=== PATIENT | female | born 1930 | race Caucasian/White ===

== ENCOUNTER → 2016-10-16 | Outpatient (CLI) | payer OTHER ==
[~2016-10-16] MED LIST: AMLODIPINE PO; B COCAP10 PO; CALC600T9 PO; CULTURELLE PO; EVS60 PO; FISHOIL PO; FLAXSEED OIL PO; IRON PO; LEVOTHYROXINE PO; NIACIN PO; OMEG1CAP71 PO; PANT40TA PO; TUMERIC PO; ZYRTEC PO
[2016-10-16 12:26] LABS: BASO % 0.3 %; BASO ABS # 0.02 K/uL (0-0.2); COMPLETE YES; EOS % 4.6 %; HEMATOCRIT 44.6 % (37-47); IG% 0.1 %; LYMPH % 18.7 %; LYMPH ABS # 1.34 K/uL (1.2-3.4); MEAN CELL VOLUME 99.8 fL (80-100); MEAN CORPUSCULAR HEMOGLOBIN 32.2 pg (25-34); MEAN CORPUSCULAR HGB CONC 32.3 g/dl (32-36); MEAN PLATELET VOLUME 10.5 fL (7.4-10.4); MONO % 9.7 %; NEUT % 66.6 %; PLATELET COUNT 200 K/uL (130-400); RED BLOOD COUNT 4.47 M/uL (4.2-5.4); WHITE BLOOD COUNT 7.15 K/uL (4.8-10.8)
[2016-10-16 13:49] LABS: ALB/GLOB RATIO 1.2 (0.9-2); ALKALINE PHOSPHATASE 68 U/L (45-117); ALT/SGPT 33 U/L (12-78); AST/SGOT 28 U/L (15-37); BLOOD UREA NITROGEN 21 mg/dl (7-18); BUN/CREATININE RATIO 22.1 (10-20); CALCIUM 8.5 mg/dl (8.5-10.1); CARBON DIOXIDE 26 mmol/L (21-32); CHLORIDE 112 mmol/L (98-107); CHOLESTEROL 206 mg/dl (0-200); CREATININE 0.93 mg/dl (0.60-1.20); GLUCOSE 95 mg/dl (70-99); HDL CHOLESTEROL 103 mg/dl; LDL CHOLESTEROL CALCULATED 91 mg/dl; POTASSIUM 3.8 mmol/L (3.5-5.1); SODIUM 146 mmol/L (136-145); TRIGLYCERIDES 62 mg/dl (0-150); VERY LOW DENSITY LIPOPROT CALC 12 mg/dl
== END | disposition home or self-care (01) ==
LOC: C.LABPBG 08:22
PROVIDERS: ATTEND Internal Medicine
DX: M85.80 Other specified disorders of bone density and structure, unspecified site (principal); D75.89 Other specified diseases of blood and blood-forming organs

== ENCOUNTER → 2017-01-28 | Outpatient (CLI) | payer OTHER ==
--- NOTE | 2017-01-28 15:18 | MAMMOGRAPHY REPORT ---
BILATERAL DIGITAL SCREENING MAMMOGRAM WITH CAD: 01/28/2017 CLINICAL HISTORY: Routine screening. TECHNIQUE: Current study was also evaluated with a Computer Aided Detection (CAD) system. Bilateral CC and MLO views were obtained. COMPARISON: Comparison is made to exams dated: 01/28/2016 mammogram, 01/24/2015 mammogram, 01/23/2014 m ammogram, 01/26/2013 mammogram, 01/21/2013 mammogram, and 01/08/2012 mammogram - [facility] enter. BREAST COMPOSITION: There are scattered areas of fibroglandular density in both breasts. FINDINGS: No suspicious masses, calcifications, or areas of architectural distortion are noted in ei ther breast. There has been no significant interval change compared to prior exams. IMPRESSION: ACR BI-RADS CATEGORY 1: NEGATIVE There is no mammographic evidence of malignancy. A 1 year screening mammogram is recommended. The pa tient will receive written notification of the results. Approximately 10% of breast cancers are not detected with mammography. A negative mammographic report should not delay biopsy if a clinically suggestive mass is present. Luciana Peters M.D. ah/:01/28/2017 09:48:51 Director Presales: Dustin Marie RT(R)(M), [facility] letter sent: Normal 1/2 BI-RADS Code: ACR BI-RADS Category 1: Negative
== END | disposition home or self-care (01) ==
LOC: C.MAMM 08:38
PROVIDERS: ATTEND Obstetrics & Gynecology
DX: Z12.31 Encounter for screening mammogram for malignant neoplasm of breast (principal)

== ENCOUNTER → 2017-03-19 | Outpatient (CLI) | payer OTHER ==
[2017-03-19 12:58] LABS: INR 1.2 (0.9-1.1); PROTHROMBIN TIME (PATIENT) 13.1 SECONDS (9.0-12.0)
== END | disposition home or self-care (01) ==
LOC: C.LABPBG 09:30
PROVIDERS: ATTEND Internal Medicine
DX: I48.91 Unspecified atrial fibrillation (principal); I48.92 Unspecified atrial flutter

== ENCOUNTER 2019-07-15 06:16 | Inpatient (IN) ==
--- NOTE | 2019-06-10 13:24 | PAT Medication Instructions ---
Medication Instructions Date of Service June 10, 2019 Home Medications Medication Instructions Recorded metoprolol succinate 25 mg 25 mg PO BID #180 tab 12/06/18 tablet,extended release 24 hr metoprolol succinate 25 mg tablet,extended release 24 hr 25 mg PO BID B-complex with vitamin C 1 cap PO QAM apixaban 2.5 mg tablet 2.5 mg PO BID calcium carbonate-vitamin D3 250 mg-125 unit tablet 1 tab PO BID fish,bora,flax oils-om3,6,9no1 1,200 mg capsule 1 cap PO QAM flaxseed oil 1,000 mg capsule 1,000 mg PO QAM magnesium oxide 400 mg (241.3 mg magnesium) tablet 250 mg PO QAM niacin 500 mg tablet 500 mg PO QAM omega-3 fatty acids 1,000 mg capsule 1,000 mg PO QAM triamcinolone acetonide 0.1 % topical cream 1 appln TOPICAL BID PRN ferrous sulfate 325 mg PO QAM levothyroxine 75 mcg PO QAM pantoprazole 40 mg PO QAM turmeric 400 mg PO QAM ASK your prescriber and surgeon apixaban 2.5 mg tablet 2.5 mg PO BID *MUST BE HELD FOR AT LEAST 3 DAYS/72 HOURS FOR SPINAL ANESTHESIA STOP taking 2 weeks before surgery If surgery is within 2 weeks, stop taking as soon as possible. fish,bora,flax oils-om3,6,9no1 1,200 mg capsule 1 cap PO QAM flaxseed oil 1,000 mg capsule 1,000 mg PO QAM omega-3 fatty acids 1,000 mg capsule 1,000 mg PO QAM turmeric 400 mg PO QAM STOP taking 48 hours before surgery niacin 500 mg tablet 500 mg PO QAM STOP taking 24 hours before surgery triamcinolone acetonide 0.1 % topical cream 1 appln TOPICAL BID PRN DO NOT take the morning of surgery B-complex with vitamin C 1 cap PO QAM calcium carbonate-vitamin D3 250 mg-125 unit tablet 1 tab PO BID magnesium oxide 400 mg (241.3 mg magnesium) tablet 250 mg PO QAM ferrous sulfate 325 mg PO QAM Take morning of surgery With a small sip of water, OTHERWISE NOTHING TO EAT OR DRINK AFTER MIDNIGHT: metoprolol succinate 25 mg tablet,extended release 24 hr 25 mg PO BID levothyroxine 75 mcg PO QAM pantoprazole 40 mg PO QAM Take evening before surgery metoprolol succinate 25 mg tablet,extended release 24 hr 25 mg PO BID calcium carbonate-vitamin D3 250 mg-125 unit tablet 1 tab PO BID Other Notes If you have any questions please call us at [phone] or [phone] or [phone] or [phone]
--- NOTE | 2019-06-13 14:23 | Anesthesiology Consultation ---
Date of Service June 13, 2019 Assessment & Plan (1) Encounter for pre-operative examination: Chart Review Chart Review: Acceptable Risk for Surgery and Patient seen in Pre Admission Testing Pt last seen by cardio 04/21/19= "patient stable from cardiovascular standpoint." Cardio suspected a fib at least persistent if not permanent. T olerating rate control long winder tender anticoagulation without difficulty. Continue current meds Pt on Eliquis for a fib- explained that Eliquis needs to be held x 72 hours in order to get spinal anesthesia. Pt will discuss with prescriber and call if not able to hold for 72 hours CXR showing new lung nodule- note sent to PCP for records and to work up as outpatient Blood bank also informed of positive antibodies with T&S Teaching & Discussion Pre-Anesthesia Teaching/Discussion Notes: Instructed NPO after midnight before surgery,except medications with 15 cc of water. Medication instructions provided according to the PAT guidelines. History Surgery Operation Date: 07/15/19 10:40 Proposed Procedures p Right Total Hip Replacement - Raffi Bocanegra MD Height/Weight Height: 5 ft Weight: 55 kg Allergies Allergy/AdvReac Type Severity Reaction Status Date / Time montelukast [From Singulair] Allergy Severe swelling Unverified 06/13/19 12:58 nickel Allergy Mild RASH Verified 06/13/19 12:58 house dust Allergy Unknown Verified 06/13/19 12:58 tree and shrub pollen Allergy Unknown Verified 06/13/19 12:58 Medications Home Medications Medication Instructions Recorded Confirmed Last Taken metoprolol succinate 25 mg 25 mg PO BID #180 tab 12/06/18 06/13/19 Unknown tablet,extended release 24 hr B-complex with vitamin C 1 cap PO QAM 01/13/19 06/13/19 Unknown apixaban 2.5 mg tablet 2.5 mg PO BID 01/13/19 06/13/19 Unknown calcium carbonate-vitamin D3 250 1 tab PO BID tab 01/13/19 06/13/19 Unknown mg-125 unit tablet fish,bora,flax oils-om3,6,9no1 1 cap PO QAM cap 01/13/19 06/13/19 Unknown 1,200 mg capsule flaxseed oil 1,000 mg capsule 1,000 mg PO QAM 01/13/19 06/13/19 Unknown magnesium oxide 400 mg (241.3 mg 250 mg PO QAM tab 01/13/19 06/13/19 Unknown magnesium) tablet niacin 500 mg tablet 500 mg PO QAM tab 01/13/19 06/13/19 Unknown omega-3 fatty acids 1,000 mg 1,000 mg PO QAM 01/13/19 06/13/19 Unknown capsule triamcinolone acetonide 0.1 % 1 appln TOPICAL BID PRN #60 gm 01/13/19 06/13/19 Unknown topical cream ferrous sulfate 325 mg PO QAM 06/03/19 06/13/19 Unknown levothyroxine 75 mcg PO QAM 06/03/19 06/13/19 Unknown pantoprazole 40 mg PO QAM 06/03/19 06/13/19 Unknown turmeric 400 mg PO QAM 06/03/19 06/13/19 Unknown Past Medical History Medical History Diastolic dysfunction DJD (degenerative joint disease) GERD (gastroesophageal reflux disease) Well controlled and stable with PPI HTN (hypertension) (Chronic) Hypothyroidism (acquired) (Chronic) Mitral valve regurgitation Mild per 2017 ECHO Osteoporosis, unspecified (Chronic) Permanent atrial fibrillation (Chronic) On Eliquis and Metoprolol- Dx'ed 2017- Follows with cardio - No recent palpitations Photosensitive contact dermatitis Exercise / Class Metabolic Activity III < 4 Walking/Shop/Light housework (occ does one flight of stairs- no chest pain- minimal SOB) Past Family History Family History Mother , 66 breast cancer Breast cancer Sister Breast cancer Brother Carcinoma of parathyroid gland Son Epilepsy Father , 90 No problems noted. Past Surgical History Surgical History H/O colonoscopy History of right oophorectomy S/P appendectomy S/P cataract surgery bilateral S/P eye surgery bilateral lower ectropion repair S/P tonsillectomy S/P total abdominal hysterectomy 10/22/10 Status post total replacement of hip LEFT Past Anesthesia History No Hx of Anesthesia Complications and No Family Hx of Anesthesia Complications History of PONV No Hx of PONV and No Hx of Motion Sickness Social History Smoking Status: Former smoker (light smoker x several years ) Do You Dip or Chew Tobacco: No Smoking End Date: 60 YRS AGO Hx Alcohol Use: Yes Alcohol type: wine alcohol intake frequency: 0-2 drinks per day (1 glass per night ) Hx Substance Use: No substance use type: does not use Review of Systems Reflux controlled and stable with med Patient denies chest pain, shortness of breath, dyspnea on exertion, cough, wheezing, palpitations. No hx of seizures, stroke, WA, apnea/snoring. No hx of blood clots or blood transfusions No recent steroid use Physical Exam Vital Signs VITALS BP 146/84 P 95 TEMP 98.0 SP02 97% RESP 16 Constitutional no acute distress ENMT Mouth: no TMJ clicking Thyromental Distance: > or= 3.5 Finger Breadths (3.5) Mallampati Class: I Missing molars. Permanent implant- upper right Neck neck extension not limited Respiratory normal respiratory effort; no respiratory distress Auscultation: lungs clear to auscultation bilaterally; no wheezes Cardiovascular Rate/Rhythm: regular rate; + abnormal rhythm (irregularly irregular rhythm) Heart Sounds: no murmur Vessels: no carotid bruit Musculoskeletal Spine: normal cervical ROM and no pain with cervical ROM Neurologic moves all extremities No LE edema Psychiatric Orientation: alert Testing Laboratory Results 06/13/19 14:35 06/13/19 14:35 PT 10.9 Seconds (9.0-12.0) 06/13/19 14:35 INR 1.1 (0.9-1.1) 06/13/19 14:35 APTT 26.4 Seconds (21.0-31.0) 06/13/19 14:35 Blood Type O Negative 06/13/19 14:35 Antibody Screen POSITIVE A 06/13/19 14:35 Electrocardiogram Date: 06/13/19 Findings: + AFIB @ (89) Atrial fibrillation with premature ventricular or aberrantly conducted complexes. Poor R wave progression, consider anterior WA versus lead placement versus LVH. When compared to EKG from 09/11/2007- a fib has replaced sinus rhythm. (2004 EKG also scanned in that shows poor R wave progression- pt follows with cardio) Chest X-Ray Date: 06/13/19 Findings: + cardiomegaly The pulmonary vasculature is not congested. There is a 1.6 cm nodule density at the right lung base- not clearly noted on prior exam in [address] scan- follow up CT scan recommended for further assessment. Scarring/atelectasis is present in the lower lobes. There is no airspace consolidation typical for pneumonia. Atherosclerotic calcification of the thoracic aorta. Skeletal structures are osteopenic. Echocardiogram Date: 10/31/16 EF: 55-60% LV Function: normal RWMA: + none Other Findings: + LVH (concentric/mild) Grade I diastolic dysfunction. Mild MR. Trace to mild TR. LA and RA mildly dilated
--- NOTE | 2019-06-13 14:55 | Electrocardiogram Report ---
Test Reason : Blood Pressure : / mmHG Vent. Rate : 089 BPM Atrial Rate : 057 BPM P-R Int : 000 ms QRS Dur : 082 ms QT Int : 378 ms P-R-T Axes : 000 -22 002 degrees QTc Int : 459 ms Atrial fibrillation with premature ventricular or aberrantly conducted complexes Poor R wave progression, consider anterior AL vs. lead placement vs. LVH Abnormal ECG When compared with ECG of 11-SEP-2007 14:50, Atrial fibrillation has replaced Sinus rhythm Confirmed by Won Valenzuela ([id number]) on 06/13/2019 2:55:12 PM Referred By: Raffi Bocanegra Confirmed By:Won Valenzuela
[2019-06-13 15:17] LABS: Basophils # (auto) 0.03 K/uL (0-0.2); Basophils % (auto) 0.5 %; Hematocrit (blood only) 39.6 % (37-47); Hemoglobin 13.6 g/dL (12.0-16.0); Immature Granulocytes # (auto) 0.02 K/uL (0.00-0.02); Immature Granulocytes % (auto) 0.3 %; Lymphocytes # (auto) 1.16 K/uL (1.2-3.4); Lymphocytes % (auto) 17.5 %; Mean Corpuscular Hemoglobin 33.5 pg (25-34); Mean Corpuscular Hgb Conc 34.3 g/dL (32-36); Mean Corpuscular Volume 97.5 fL (80-100); Mean Platelet Volume 9.2 fL (7.4-10.4); Monocytes % (auto) 10.5 %; Neutrophils # (auto) 4.53 K/uL (1.4-6.5); Neutrophils % (auto) 68.2 %; Platelet Count 246 K/uL (130-400); RDW Coefficient of Variation 13.6 % (11.5-14.5); RDW Standard Deviation 48.6 fL (36.4-46.3); Red Blood Count 4.06 M/uL (4.2-5.4); White Blood Count 6.64 K/uL (4.8-10.8)
[2019-06-13 15:25] LABS: BUN Creatinine Ratio 19.6 (10-20); C Reactive Protein 0.84 mg/dl (0-0.29); Calcium 9.1 mg/dl (8.5-10.1); Creatinine Clr Calc Pharmacy 38.1 ml/min; Est GFR (African American) 75.7; Est GFR (Non-African American) 65.3
[2019-06-13 15:28] LABS: INR 1.1 (0.9-1.1); Partial Thromboplastin Time 26.4 Seconds (21.0-31.0); Prothrombin Time 10.9 Seconds (9.0-12.0)
--- NOTE | 2019-06-13 15:53 | XRay Report ---
TWO VIEW CHEST CLINICAL HISTORY: Preoperative examination. FINDINGS: PA and lateral chest radiographs are compared to chest x-ray and chest CT dated 09/11/2007. T he heart is enlarged noting atherosclerotic calcification of the thoracic aorta. The pulmonary vascul ature is noncongested. There is a 1.6 cm nodular density at the right lung base. Scarring/atelectasis is present in the lower lobes. There is no airspace consolidation typical for pneumonia. There is no pneumothorax. The skeletal structures are osteopenic. The bony thorax appears intact. Degenerative c hange is noted in the thoracic spine. IMPRESSION: 1. Cardiomegaly with no acute cardiopulmonary. 2. A 1.6 cm nodular density is seen at the right lung base. This was not clearly seen on prior examin ations and correlation with a follow-up chest CT is recommended for further assessment. ACT 112: Negative or not required by law. Electronically signed by: Elie Menon M.D. 06/13/2019 3:51 PM
--- NOTE | 2019-07-10 23:17 | History and Physical Report ---
DATE OF ADMISSION: 07/15/2019 CHIEF COMPLAINT: Right hip pain. HISTORY OF PRESENT ILLNESS: An 88-year-old white female who presents on referral from my partner, Dr. Obrien, for surgical treatment of her right hip. She has a several-month history of increasing right hip pain and discomfort, describes it has gotten worse over time. She describes groin pain, thigh pain. It is increased with weightbearing. She has difficulty putting her shoes and socks on. She did have her left hip replaced by Dr. Foster and has done pretty well from that. She would like to have her right hip fixed. It is disabling. Of note, the patient has recently been in the ER for apparent hearing loss and underwent just cleaning out the wax which seemed to help. She was put on some antibiotics prophylactically for some mild concerns for infection. PAST MEDICAL HISTORY: Significant for, 1. Atrial fibrillation, on Eliquis. 2. Hypothyroidism. PAST SURGICAL HISTORY: Include, 1. Tonsillectomy. 2. Right-sided oophorectomy. 3. Hysterectomy. 4. Left hip replacement done by Dr. Foster in 2003. ALLERGIES: None. CURRENT MEDICINES: Include, 1. Eliquis 2.5 mg twice a day. 2. Levothyroxine 75 mg a day. 3. Pantoprazole 40 mg. 4. Metoprolol 25 mg a day. 5. Turmeric. 6. Calcium. 7. Niacin. 8. B complex. 9. Magnesium. 10. [place]. 11. Fish oil. 12. Iron. 13. Flaxseed oil. SOCIAL HISTORY: An 88-year-old female. Lives at [facility]. Fairly active. Does not smoke. Seven drinks per week. FAMILY HISTORY: Noncontributory. REVIEW OF SYSTEMS: Significant for atrial fibrillation, on Eliquis. Denies any chest pain or shortness of breath. No history of DVT or PE. No known bleeding disorders. PHYSICAL EXAMINATION: GENERAL: Shows a pleasant, spry, elderly female. Looks to be in good health. HEENT: Benign. NECK: Supple, no lymphadenopathy. LUNGS: Clear to auscultation. HEART: Regular rate and rhythm. ABDOMEN: Soft, nontender, nondistended. EXTREMITIES: Grossly neurovascularly intact except as follows: Examination of the right hip reveals the patient walks with slight bit of a limp. Leg lengths clinically appear equal. She does have pain and stiffness with any type of hip motion. This recreates her pain. She can internally rotate to about neutral. No knee effusion. Negative straight leg raise. She is neurologically intact. X-RAYS: X-rays of the right hip were reviewed. Shows moderate to advanced right hip DJD. She has fairly concentric disease and loss of her joint space. Not a lot of osteophyte formation. The left hip replacement looks to be in acceptable position and ____. X-rays of the right knee reviewed. Fairly normal x-rays. Minimal arthritic findings. ASSESSMENT: An 88-year-old white female with a history of left hip replacement in 2003 with moderate to advanced right hip degenerative joint disease and right leg and groin and thigh pain limiting her activities. She would like to have her right hip fixed. She is having some knee pain as well, but I think this is all referred from her hip. PLAN: We are going to proceed with right total hip replacement. The risks and benefits of this procedure were explained to the patient, including but not limited to, DVT, PE, , infection, neurological injury, vascular injury, bleeding problem, pain, limited range of motion, stiffness, failure to relieve her symptoms, incomplete relief of symptoms, need for further surgery in the future, fracture, leg length inequality, nerve palsy, dislocation, and incomplete relief of symptoms, etc. The patient understands and desires to proceed. Informed consent was obtained. She will stop her Eliquis 3 days preop. She is hoping to be discharged back to [facility] depending on how she does in the hospital. We will monitor her stability to limit the risk of dislocation. She does appear to have a nickel allergy and we used a titanium stem and a ceramic head.
[~2019-07-15 06:16] MED LIST changes: +ACETAMINOPHEN 500 MG TAB PO SCH; -AMLODIPINE PO; -B COCAP10 PO; -CALC600T9 PO; +CEFAZOLIN 2000MG 2,000 MG/15 ML SYR IV SCH; -CULTURELLE PO; -EVS60 PO; +FAMOTIDINE 20 MG TAB PO SCH; -FISHOIL PO; -FLAXSEED OIL PO; +GABAPENTIN 300 MG CAP PO SCH; -IRON PO; -LEVOTHYROXINE PO; +LR 500ML BOLUS, THEN 15ML/HR IV SCH; +LR 60ML/HR IV SCH; +METOCLOPRAMIDE HCL 10 MG TABLET PO SCH; +NALOXONE HCL 0.4 MG/1 ML VIAL/CARP IV PRN; -NIACIN PO; -OMEG1CAP71 PO; -PANT40TA PO; +TRANEXAMIC ACID 1,000 MG **IV Pre-op IV SCH; -TUMERIC PO; -ZYRTEC PO
[2019-07-15] MEDS ORDERED: BUPIVACAINE 0.5 % 5 MG/1 ML PF 10ML VIAL ONE (06:40)
--- NOTE | 2019-07-15 06:59 | History & Physical Bridge Note ---
Date of Service July 15, 2019 History & Physical Bridge Note I have examined the patient, reviewed the History & Physical and in the interval since the performance of the History & Physical I have noted the following changes of clinical significance: no changes noted
[2019-07-15] MEDS ORDERED: ONDANSETRON INJ 2 MG/ML 2 ML VIAL ONE (07:36)
[2019-07-15] MEDS ORDERED: LIDOCAINE HCL 2% 2 ML VIAL/AMP(20MG/ML) INFIL ONE (07:36)
[2019-07-15] MEDS ORDERED: PROPOFOL IV EMULSION 10 MG/ML 20 ML VIAL IV ONE ×2 (07:36→10:08)
[2019-07-15] MEDS ORDERED: MIDAZOLAM HCL 1 MG/ML 2ML VIAL ONE (07:37)
[2019-07-15] MEDS ORDERED: MoRPHine SULFATE PF 1 MG/ML 10 ML AMP/VIAL ONE (07:37)
[2019-07-15] MEDS ORDERED: fentaNYL citrate 100 MCG/2 ML VIAL ONE (07:37)
[2019-07-15] MEDS ORDERED: BACITRACIN INJ 50,000 UNIT VIAL ONE (08:36)
[2019-07-15] MEDS: BUPIVACAINE/EPINEPHRINE 0.5% MPF 1:200,000 10 ML VIAL ONE ×3 (09:29→09:55)
[2019-07-15] MEDS ORDERED: PHENYLEPHRINE HCL 10 MG/ML VIAL ONE (09:42)
[2019-07-15] MEDS ORDERED: PHENYLEPHRINE 100MCG/ML 5ML SYR ONE (09:42)
--- NOTE | 2019-07-15 10:27 | Post Operative Brief Note ---
PG Immediate Post Op with CF Date of Surgery July 15, 2019 Pre & Post Diagnosis Operation Date: 07/15/19 08:50 Pre-Op Diagnosis: Right Hip Degenerative Joint Disease Post-Op Diagnosis: Right Hip Degenerative Joint Disease I identified the patient and participated in the time-out.: Yes Procedure Operation Date: 07/15/19 08:50 Actual Procedures p Right Total Hip Replacement--Uncemented, with Application of Prophylactic Stabilization Cable x1 (Right) - Raffi Bocanegra MD Surgeon Raffi Bocanegra MD Animal Cytologist Gennaro, PAC Estimated Blood Loss 200 Findings Consistent with Post-Op Diagnosis Fluids 1200 cc Specimens Specimen Description: A. Right femoral head Drains Mathews Catheter Anesthesia Type Spinal MAC Complications none Disposition Accompanied Patient To Recovery: Yes Disposition: Recovery Room
--- NOTE | 2019-07-15 10:39 | Operative Report ---
Post Operative Report Pre & Post Diagnosis Operation Date: 07/15/19 08:50 Pre-Op Diagnosis: Right Hip Degenerative Joint Disease Post-Op Diagnosis: Right Hip Degenerative Joint Disease I identified the patient and participated in the time-out.: Yes Procedure Operation Date: 07/15/19 08:50 Actual Procedures p Right Total Hip Replacement--Uncemented, with Application of Prophylactic Stabilization Cable x1 (Right) - Raffi Bocanegra MD Surgeon Raffi Bocanegra MD Fire Medic Gennaro, PAC Estimated Blood Loss 200 Findings Consistent with Post-Op Diagnosis Operative findings revealed advanced right hip DJD. She had a fairly moderate to large hip joint effusion. She had grade 4 [id number] disease. Not much in the way of osteophyte formation. Fluids 1200 cc. Specimens Right femoral head sent for pathology. Drains Right femoral head sent for pathology. Anesthesia Type Spinal MAC Complications none Disposition Accompanied Patient To Recovery: Yes Disposition: Recovery Room Indications Patient is an 88-year-old fairly active female who lives at [facility] who is had about a year history of increasing right hip pain discomfort unresponsive conservative care. Described hip and knee pain. X-ray showed advanced hip arthritis. She has had a previous left hip replacement done well with this. She elected proceed with total hip arthroplasty. Description of Procedure Operative implants consist of: 1. A Biomet size 50 mm G7 acetabular shell. 2. 6.5 cancellus acetabular screws 1 of 35 mm in length and 1 of 30 mm length. 3. An apex hole eliminator. 4. Highly cross-linked polyethylene liner with a 50 mm outer diameter and 36 mm inner diameter liner. 5. Gato Corail size 11 KLA femoral stem. 6. +1.5/36 mm ceramic articular ball. Patient was taken to the operating room identified and placed in the operating table supine position protectors were properly padded. IV antibiotics arrived by anesthesia team. Spinal anesthetic was implemented and in the holding area. Mathews catheter was placed in sterile fashion with the patient then placed in the left lateral decubitus position. Axillary roll was placed. Stulberg hip positioner was used for positioning. The right hip and leg were then prepped and draped in usual sterile fashion. A posterior lateral approach to the right hip was then performed through a longitudinal incision centered over the greater trochanter. Sharp dissection was cut through subcutaneous tissue down to the IT band and gluteal fascia. The IT band gluteal fascia cleaned of all soft tissues. Incision was made in the IT band and gluteal fascia in line with the skin incision. The underlying greater truck bursa was excised. The piriformis and external rotators were identified and taken off the posterior aspect of hip joint capsule. Great care was taken throughout the procedure to protect the sciatic nerve at all times. Posterior capsulotomy was then performed leaving a large flap for later repair. The hip was internally rotated and dislocated. Femoral neck osteotomy cut was made with Final Cut 10 mm above the lesser trochanter. Femoral head was removed and sent for pathology. The femur was retracted anteriorly. Attention drawn the acetabulum. The acetabulum the labrum was excised. The pulmonary fat was excised. Sequential reaming the acetabular was then performed again with size 43 and progressing up to 50. A 50 mm Biomet G7 acetabular shell was then placed in about 40 degrees lateral opening and 20 degrees of anteversion but was fixed with two 6.5 cancellus acetabular screws. Trial liner was placed. Attention to the femur. Proximal femur then with a cookie-cutter followed by canal finder. I then broached begin the size 8 and progressing up to 11. Got excellent fit at 11. Then trialed the hip and the +1.5/36 mm articular ball was fully stable in full extension and external rotation flexion to 90 degrees internal rotation over 50 degrees. I did not select that the largest head in order to maximize her stability is where was not really an issue. Implant was just slightly proud of the calcar cut. I elect to place these implants. All trial implants were removed. An apex hole eliminator was placed. Highly cross-linked polyethylene liner was placed. An 11 KLA femoral stem was impacted in position. After extensive thought to the, the implant was still a bit proud and therefore elected to place a prophylactic cable overlying the proximal femur just in case is started to subside a little bit I did want to develop a calcar crack/fracture. A [employer] 2.0 mm cable was placed just above the lesser trochanter and tensioned and tightened. A +1.5/36 mm ceramic articular ball was placed and hip was relocated. Was found to be stable. Attention drawn toward closing. The wounds irrigated cups ounce pulsatile lavage solution. I did inject locally with 45 cc of appetite Marcaine with epinephrine. The posterior capsule and external rotators were repaired through drill holes in the posterior trochanter with #2 Tycron suture. The IT band gluteal fascia then closed in 1 PDS suture in a running fashion with subcutaneous tissues then closed with 2 layers with a deep layer #1 Vicryl suture and subcutaneous tissues with 2-0 Dexon suture in a buried interrupted fashion the skin was closed skin ermelinda. Legs then cleaned dried a sterile dressing composed Xeroform, 4 x 4's, sterile ABD pad and foam tape was applied. Patient then transferred to the recovery room in stable condition. Patient tolerated procedure well no complications I attest to the content of the Intraoperative Record and any orders documented therein. Any exceptions are noted below.
--- NOTE | 2019-07-15 10:51 | XRay Report ---
XR hip 1V RT w pelvis CLINICAL HISTORY: Postoperative evaluation. COMPARISON: Right hip radiographs April 28, 2019. FINDINGS: Alignment of the total right hip arthroplasty is anatomic. Cerclage wire and 2 acetabular screws are noted. There is no periprosthetic fracture or unexpected radiopaque foreign body. There ar e skin ermelinda. Left hip arthroplasty is unchanged in appearance. IMPRESSION: Expected findings following total right hip arthroplasty. ACT 112: Negative or not required by law. Results electronically sent 07/15/2019 10:50 AM to: Raffi Bocanegra MD Electronically signed by: Devin Schneider M.D. 07/15/2019 10:50 AM
[2019-07-15] MEDS ORDERED: ATROPINE SULFATE 0.1 MG/ML 10ML SYR IV PRN (10:53)
[2019-07-15] MEDS ORDERED: ePHEDrine sulfate 50 MG/ML AMP IV PRN ×2 (10:53→11:13)
--- NOTE | 2019-07-15 10:54 | Anesthesiology Progress Note ---
Date of Service July 15, 2019 Anesthesia Post Procedure Vital Signs Vital Signs: Temp Pulse Pulse Resp BP Pulse Ox 07/15/19 10:45 88 12 104/57 L 100 07/15/19 10:35 85 13 91/57 L 100 07/15/19 10:29 36.2 C L 86 13 104/53 L 100 07/15/19 07:02 36.5 C 109 H 18 126/83 95 Pain Intensity Right Hip: Pain Intensity: 0 Transfer of Care Handoff Completed per policy Notes Mental Status: alert / awake / arousable Patient Amnestic to Procedure: Yes Nausea / Vomiting: adequately controlled Pain: adequately controlled Airway Patency, RR, SpO2: stable & adequate BP & HR: stable & adequate Hydration State: stable & adequate Neuraxial Anesthesia: was administered and sensory block is resolving Anesthetic Complications: no major complications apparent
[2019-07-15] MEDS ORDERED: PROMETHAZINE HCL 25 MG in SODIUM CHLORIDE 0.9% 50 ML IV PRN (11:13)
[2019-07-15] MEDS ORDERED: DiphenhydrAMINE HCL 50 MG/ML VIAL IV PRN (11:13)
[2019-07-15] MEDS ORDERED: NALOXONE HCL 0.4 MG/1 ML VIAL/CARP IV PRN (11:13)
[2019-07-15] MEDS ORDERED: NALOXONE HCL 0.08 MG in SYRINGE 1.8 ML IV PRN (11:13)
[2019-07-15] MEDS ORDERED: LACTATED RINGER'S 500 ML IV PRN (11:13)
[2019-07-15] MEDS ORDERED: MoRPHine SULFATE PF 1 MG/ML 10 ML AMP/VIAL INT SPINAL ONE (11:13)
[2019-07-15] MEDS ORDERED: NALBUPHINE HCL INJ 10 MG/ML AMP IV PRN (11:13)
[2019-07-15] MEDS ORDERED: NALOXONE HCL 1 MG in SODIUM CHLORIDE 0.9% 1000ML 1,000 ML IV PRN (11:13)
[2019-07-15] MEDS ORDERED: ONDANSETRON INJ 2 MG/ML 2 ML VIAL IV PRN (11:13)
[2019-07-15] MEDS ORDERED: DC INTRASPINAL MORPHINE SCH (11:15)
[2019-07-15] MEDS ORDERED: NO NARCOTICS OR SEDATIVES SCH (11:15)
[2019-07-15] MEDS ORDERED: SODIUM CHLORIDE 0.9% 1000ML 1,000 ML IV SCH (11:15)
[2019-07-15] MEDS: SODIUM CHLORIDE 0.9% 1000ML 1,000 ML IV SCH ×2 (11:15→21:18)
[2019-07-15] MEDS ORDERED: TRIAMCINOLONE ACET 0.1% CR 15 GM TUBE TOP PRN (11:32)
[2019-07-15] MEDS ORDERED: MAGNESIUM HYDROXIDE SUSP 30 ML UDC PO PRN (11:32)
[2019-07-15] MEDS ORDERED: ALUMINUM/MAGNESIUM SUSP 30 ML UDC PO PRN (11:32)
[2019-07-15] MEDS ORDERED: bisacodyL 10 MG SUPP PR PRN (12:00)
[2019-07-15] MEDS: KETOROLAC TROMETHAMINE 15 MG/ML VIAL IV SCH ×2 (12:54→17:09)
[2019-07-15] MEDS: NEOMYCIN/POLYMYX/HYDROCORT OT SUSP 10 ML BTL OT SCH ×2 (12:58→21:14)
[2019-07-15] MEDS: ACETAMINOPHEN 500 MG TAB PO SCH ×2 (14:20→21:15)
[2019-07-15] MEDS: METOPROLOL SUCC 25MG EXT REL TAB PO SCH (17:08)
[2019-07-15] MEDS: ASCORBIC ACID 500 MG TAB PO SCH (17:08)
[2019-07-15] MEDS: CEFAZOLIN 1000MG 1,000 MG/7.5 ML SYR IV SCH (17:10)
--- NOTE | 2019-07-15 18:28 | Progress Note ---
DATE: 07/15/2019 SUBJECTIVE: 88-year-old white female postop from right total hip replacement. She is doing well. Not having any significant pain. Denies any chest pain or shortness of breath. Not feeling dizzy or lightheaded. OBJECTIVE: VITAL SIGNS: Temperature 36.5. Vital signs stable. Some intermittent tachycardia. GENERAL: Shows a pleasant elderly female. She is sitting up in bed, looks completely comfortable. LUNGS: Clear to auscultation. HEART: Has an irregularly irregular rhythm. ABDOMEN: Soft, nontender, nondistended. EXTREMITIES: Grossly neurovascularly intact except as follows: Examination of the right leg reveals the leg lengths to be equal. Dressing is clean, dry and intact. Thigh is soft and supple. She can dorsiflex and plantarflex her foot appropriately. Hip is located. She is neurologically intact. X-RAYS: X-rays of the right hip from recovery room reviewed. It shows right uncemented total hip arthroplasty. Components looked to be in good position. No signs of problems. ASSESSMENT: 88-year-old white female postop from right hip replacement. She is doing well. She does have underlying atrial fibrillation and has had a little bit of intermittent tachycardia. PLAN: 1. DVT prophylaxis including thigh-high TEDS, SCDs, and we will start her back on her Eliquis 24 hours postop. She is on a dose of 2.5 mg twice a day. We will just stick with that dose starting 24 hours postop. 2. PT/OT. Weight bear as tolerated. Right total hip protocol. We did prophylactically cable her femur, and there was no fracture. 3. Pain control, doing well with current pain regimen. We are going to stick with around the clock Tylenol. Will give her some low dose Toradol in the hospital and use tramadol for pain. 4. IV antibiotics x24 hours. 5. Disposition. She lives at [facility]. She is planning on going back there with some assistance. 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
[2019-07-15] MEDS: SENNA 8.6 MG TAB PO SCH (21:14)
[2019-07-15] MEDS: CALCIUM 600MG + VIT D 400 IU TAB PO SCH (21:15)
[2019-07-15] MEDS: DOCUSATE SODIUM 100 MG CAP PO SCH (21:16)
[2019-07-16] MEDS: CEFAZOLIN 1000MG 1,000 MG/7.5 ML SYR IV SCH (00:07)
[2019-07-16] MEDS: KETOROLAC TROMETHAMINE 15 MG/ML VIAL IV SCH ×2 (00:07→05:49)
[2019-07-16] MEDS ORDERED: METOCLOPRAMIDE HCL INJ 5 MG/ML 2 ML VIAL IV PRN (05:15)
[2019-07-16] MEDS ORDERED: ONDANSETRON INJ 2 MG/ML 2 ML VIAL IV PRN (05:15)
[2019-07-16] MEDS ORDERED: HYDROmorphone INJ 0.5 MG/0.5 ML SYR IV PRN (05:15)
[2019-07-16] MEDS: NEOMYCIN/POLYMYX/HYDROCORT OT SUSP 10 ML BTL OT SCH ×3 (05:47→20:20)
[2019-07-16] MEDS: LEVOTHYROXINE SODIUM 75 MCG TABLET PO SCH (05:48)
[2019-07-16] MEDS: FERROUS SULFATE 325 MG TAB PO SCH (05:48)
[2019-07-16] MEDS: ACETAMINOPHEN 500 MG TAB PO SCH ×3 (05:49→21:07)
[2019-07-16 06:13] LABS: Basophils # (auto) 0.01 K/uL (0-0.2); Basophils % (auto) 0.1 %; Eosinophils # (auto) 0.03 K/uL (0-0.5); Eosinophils % (auto) 0.3 %; Hematocrit (blood only) 27.4 % (37-47); Immature Granulocytes # (auto) 0.03 K/uL (0.00-0.02); Immature Granulocytes % (auto) 0.3 %; Lymphocytes # (auto) 0.86 K/uL (1.2-3.4); Mean Corpuscular Hemoglobin 33.2 pg (25-34); Mean Corpuscular Hgb Conc 32.8 g/dL (32-36); Mean Corpuscular Volume 101.1 fL (80-100); Mean Platelet Volume 9.4 fL (7.4-10.4); Monocytes # (auto) 1.21 K/uL (0.11-0.59); Monocytes % (auto) 14.1 %; Neutrophils # (auto) 6.45 K/uL (1.4-6.5); Neutrophils % (auto) 75.2 %; Platelet Count 212 K/uL (130-400); Red Blood Count 2.71 M/uL (4.2-5.4); White Blood Count 8.59 K/uL (4.8-10.8)
[2019-07-16 06:47] LABS: BUN Creatinine Ratio 27.5 (10-20); Calcium 7.9 mg/dl (8.5-10.1); Creatinine Clr Calc Pharmacy 36.9 ml/min; Est GFR (Non-African American) 67.3
[2019-07-16] MEDS: ASCORBIC ACID 500 MG TAB PO SCH ×2 (08:59→17:23)
[2019-07-16] MEDS: DOCUSATE SODIUM 100 MG CAP PO SCH ×2 (08:59→20:21)
[2019-07-16] MEDS: OMEGA-3 (PURIFIED FISH OIL) 1 GM CAP PO SCH (08:59)
[2019-07-16] MEDS: NIACIN 500 MG TAB PO SCH (08:59)
[2019-07-16] MEDS: VITAMIN B COMPLEX TAB PO SCH (08:59)
[2019-07-16] MEDS: MULTIVITAMIN TAB PO SCH (08:59)
[2019-07-16] MEDS: MAGNESIUM OXIDE 400 MG TAB PO SCH (08:59)
[2019-07-16] MEDS: CALCIUM 600MG + VIT D 400 IU TAB PO SCH ×2 (08:59→20:21)
[2019-07-16] MEDS: METOPROLOL SUCC 25MG EXT REL TAB PO SCH ×2 (08:59→20:21)
[2019-07-16] MEDS ORDERED: NON-FORMULARY MEDICATION (Turmeric 400 MG) PO SCH (09:00)
[2019-07-16] MEDS: PANTOprazole 40 MG TAB PO SCH (09:00)
[2019-07-16] MEDS ORDERED: FATTY ACIDS PO SCH (09:00)
[2019-07-16] MEDS ORDERED: OMEGA PO SCH (09:00)
[2019-07-16] MEDS ORDERED: NON-FORMULARY MEDICATION (Flaxseed Oil 1,000 MG) PO SCH (09:00)
[2019-07-16] MEDS: TRAMADOL HCL 50 MG TABLET PO PRN (09:27)
--- NOTE | 2019-07-16 10:13 | Orthopedic Progress Note ---
Date of Service July 16, 2019 Assessment & Plan (1) Degenerative joint disease (DJD) of hip: ASSESSMENT: 88-year-old white female POD1 postop from right hip replacement. She is doing well. She does have underlying atrial fibrillation and has had a little bit of intermittent tachycardia. PLAN: Continue POC directed by Dr. Bocanegra 1. DVT prophylaxis including thigh-high TEDS, SCDs, and we will start her back on her Eliquis 24 hours postop. She is on a dose of 2.5 mg twice a day. We will just stick with that dose starting 24 hours postop. 2. PT/OT. Weight bear as tolerated. Right total hip protocol. We did prophylactically cable her femur, and there was no fracture. 3. Pain control, doing well with current pain regimen. We are going to stick with around the clock Tylenol. Will give her some low dose Toradol in the hospital and use tramadol for pain. 4. Disposition. She lives at [facility]. She states that is not possible to go back to her [facility] place of living. Appreciate PT/OT evaluation and determination for next level of care with discharge planning assistance. She is making good progress and can be ready tomorrow or Thursday. Subjective Lying in bed and states that this is more pain than she remembers from her last total joint replacement. Denies nausea/vomiting, shortness of breath nor any chest pain. She reports is been out of bed yesterday. She is looking forward to PT/OT today. Review of Systems Review of Systems: All systems reviewed & are unremarkable except as noted in HPI & below Physical Exam Constitutional: WD/WN, vitals as above well nourished and + well hydrated; no acute distress Respiratory: normal respiratory effort; no respiratory distress and no labored breathing Cardiovascular: Extremities: no calf tenderness and no pedal edema Musculoskeletal: Right lower extremity: Hip dressing is clean dry and intact, motor intact quadricep hamstring tib ant gastrocsoleus and EHL. 2+ DP/PT pulses. Sensation grossly intact to light touch. Results & Data ([facility]) Vital Signs (Past 12 Hours) Vital Signs Temp Pulse Resp BP Pulse Ox 07/16/19 07:12 37.1 C 113 H 18 115/67 96 07/16/19 05:18 16 92 07/16/19 04:18 16 94 07/16/19 03:29 90 07/16/19 03:19 16 93 07/16/19 02:52 37.5 C 115 H 16 102/66 93 07/16/19 02:23 15 90 07/16/19 01:19 16 90 07/16/19 00:32 16 92 07/15/19 23:36 16 94 07/15/19 23:35 37.1 C 109 H 16 123/70 94 07/15/19 22:35 16 95 PG Care Time/CCT Total # of Minutes Spent Total Time Spent with Patient: Total time spent is greater than 50% in coordination of care (as documented) at patient's floor/unit and/or counseling patient: Coding Level of Care Code None Diagnoses Degenerative joint disease (DJD) of hip M16.9
[2019-07-16] MEDS: APIXABAN 2.5 MG TAB PO SCH ×2 (11:24→20:21)
[2019-07-16] MEDS: SENNA 8.6 MG TAB PO SCH (20:23)
[2019-07-17] MEDS: NEOMYCIN/POLYMYX/HYDROCORT OT SUSP 10 ML BTL OT SCH ×3 (06:09→20:46)
[2019-07-17] MEDS: ACETAMINOPHEN 500 MG TAB PO SCH ×3 (06:10→20:45)
[2019-07-17] MEDS: FERROUS SULFATE 325 MG TAB PO SCH (06:11)
[2019-07-17] MEDS: LEVOTHYROXINE SODIUM 75 MCG TABLET PO SCH (06:12)
[2019-07-17] MEDS: NIACIN 500 MG TAB PO SCH (07:48)
[2019-07-17] MEDS: METOPROLOL SUCC 25MG EXT REL TAB PO SCH ×2 (07:48→20:46)
[2019-07-17] MEDS: MAGNESIUM OXIDE 400 MG TAB PO SCH (07:48)
[2019-07-17] MEDS: PANTOprazole 40 MG TAB PO SCH (07:48)
[2019-07-17] MEDS: VITAMIN B COMPLEX TAB PO SCH (07:49)
[2019-07-17] MEDS: MULTIVITAMIN TAB PO SCH (07:49)
[2019-07-17] MEDS: APIXABAN 2.5 MG TAB PO SCH ×2 (07:49→20:46)
[2019-07-17] MEDS: OMEGA-3 (PURIFIED FISH OIL) 1 GM CAP PO SCH (07:49)
[2019-07-17] MEDS: ASCORBIC ACID 500 MG TAB PO SCH ×2 (07:49→17:38)
[2019-07-17] MEDS: CALCIUM 600MG + VIT D 400 IU TAB PO SCH ×2 (07:49→20:45)
[2019-07-17] MEDS: DOCUSATE SODIUM 100 MG CAP PO SCH ×2 (07:49→20:46)
--- NOTE | 2019-07-17 10:32 | Orthopedic Progress Note ---
Date of Service July 17, 2019 Assessment & Plan (1) Degenerative joint disease (DJD) of hip: ASSESSMENT: 88-year-old white female POD2 postop from right hip replacement. She is doing well. She does have underlying atrial fibrillation and has had a little bit of intermittent tachycardia. PLAN: Continue POC directed by Dr. Bocanegra 1. DVT prophylaxis including thigh-high TEDS, SCDs, and Eliquis. She is on a dose of 2.5 mg twice a day. 2. PT/OT. Weight bear as tolerated. Right total hip protocol. We did prophylactically cable her femur, and there was no fracture. 3. Pain control, doing well with current pain regimen. We are going to stick with around the clock Tylenol. Use tramadol for breakthrough pain. 4. Disposition. She lives at [facility]. Appreciate PT/OT evaluation and determination for next level of care with discharge planning assistance. She is making good progress and will discuss with family about whether she will have adequate assistance at home. Home health services can likely start tomorrow. We will see how she does today. Subjective Reports minimal pain. She was participatory with physical therapy and Occupational Therapy without issue. She wants to go back to her college at [employer]. She thinks that she is competent to do so with the help of her daughter who lives 4 miles away and [facility]. Review of Systems Review of Systems: All systems reviewed & are unremarkable except as noted in HPI & below Physical Exam Constitutional: WD/WN, vitals as above well nourished and + well hydrated; no acute distress Respiratory: normal respiratory effort; no respiratory distress and no labored breathing Cardiovascular: Extremities: no calf tenderness and no pedal edema Musculoskeletal: Right lower extremity: Hip dressing is clean dry and intact, motor intact quadricep hamstring tib ant gastrocsoleus and EHL. 2+ DP/PT pulses. Sensation grossly intact to light touch. Results & Data ([facility]) Vital Signs (Past 12 Hours) Vital Signs Temp Pulse Resp BP Pulse Ox 07/17/19 06:10 36.7 C 116 H 20 145/75 H 96 07/16/19 23:01 37.2 C 99 H 15 132/77 93 PG Care Time/CCT Total # of Minutes Spent Total Time Spent with Patient: Total time spent is greater than 50% in coordination of care (as documented) at patient's floor/unit and/or counseling patient: Coding Level of Care Code None Diagnoses Degenerative joint disease (DJD) of hip M16.9
[2019-07-17] MEDS: SENNA 8.6 MG TAB PO SCH (20:46)
[2019-07-18] MEDS: TRAMADOL HCL 50 MG TABLET PO PRN (02:13)
[2019-07-18] MEDS: NEOMYCIN/POLYMYX/HYDROCORT OT SUSP 10 ML BTL OT SCH (05:55)
[2019-07-18 06:01] LABS: Creatinine Clr Calc Pharmacy 49.5 ml/min; Est GFR (African American) 95.5; Est GFR (Non-African American) 82.4
[2019-07-18] MEDS: ACETAMINOPHEN 500 MG TAB PO SCH (06:05)
[2019-07-18] MEDS: LEVOTHYROXINE SODIUM 75 MCG TABLET PO SCH (06:07)
[2019-07-18] MEDS: FERROUS SULFATE 325 MG TAB PO SCH (06:07)
--- NOTE | 2019-07-18 07:25 | Orthopedic Progress Note ---
Date of Service July 18, 2019 Assessment & Plan (1) History of hip replacement: She is POD #3 from right GAYATHRI. Continue teds, scds and she is back on her dose of eliquis. Continue PT/OT: wbat and total hip precautions discharge planning: She is planning on going back to [facility] and set up with Home health today. Follow up approx 2 weeks post op Subjective 88 y/o female POD #3 Right GAYATHRI. She had more hip pain last night than she's had during her hospital stay. She said she was given 2 pain pills but probably should just take one. Denies chest pain or shortness of breath. Review of Systems Respiratory: as per Subjective / HPI Cardiovascular: no chest pain Physical Exam Physical Exam: She is alert and oriented. NAD. Dressing is intact to right hip. There is some bloody drainage on the dressing. Some thigh swelling. No calf tenderness. She is able to DF/PF appropriately. NVI. Leg is well aligned. No pain with gentle motion of right hip. Results & Data ([facility]) Vital Signs (Past 12 Hours) Vital Signs Temp Pulse Resp BP BP Pulse Ox 07/17/19 23:20 36.9 C 104 H 16 140/75 96 07/17/19 20:43 91 H 117/70 PG Care Time/CCT Total # of Minutes Spent Total Time Spent with Patient: Total time spent is greater than 50% in coordination of care (as documented) at patient's floor/unit and/or counseling patient: Coding Level of Care Code None Diagnoses History of hip replacement Z96.649
--- NOTE | 2019-07-18 07:36 | Anesthesiology Progress Note ---
Date of Service July 18, 2019 Anesthesia Post Procedure Vital Signs Vital Signs: Temp Pulse Resp BP BP Pulse Ox 07/17/19 23:20 36.9 C 104 H 16 140/75 96 07/17/19 20:43 91 H 117/70 07/17/19 15:10 37.1 C 105 H 14 116/66 95 Pain Intensity Right Hip: Pain Intensity: 0 Notes Mental Status: alert / awake / arousable and participated in evaluation Patient Amnestic to Procedure: Yes Nausea / Vomiting: adequately controlled Pain: adequately controlled Airway Patency, RR, SpO2: stable & adequate BP & HR: stable & adequate Hydration State: stable & adequate Neuraxial Anesthesia: was administered and sensory block resolved Anesthetic Complications: no major complications apparent
[2019-07-18] MEDS: VITAMIN B COMPLEX TAB PO SCH (07:55)
[2019-07-18] MEDS: MAGNESIUM OXIDE 400 MG TAB PO SCH (07:55)
[2019-07-18] MEDS: PANTOprazole 40 MG TAB PO SCH (07:55)
[2019-07-18] MEDS: ASCORBIC ACID 500 MG TAB PO SCH (07:55)
[2019-07-18] MEDS: CALCIUM 600MG + VIT D 400 IU TAB PO SCH (07:55)
[2019-07-18] MEDS: NIACIN 500 MG TAB PO SCH (07:55)
[2019-07-18] MEDS: METOPROLOL SUCC 25MG EXT REL TAB PO SCH (07:55)
[2019-07-18] MEDS: OMEGA-3 (PURIFIED FISH OIL) 1 GM CAP PO SCH (07:55)
[2019-07-18] MEDS: MULTIVITAMIN TAB PO SCH (07:55)
[2019-07-18] MEDS: APIXABAN 2.5 MG TAB PO SCH (07:56)
[2019-07-18] MEDS: DOCUSATE SODIUM 100 MG CAP PO SCH (07:56)
== END 2019-07-18 11:06 | disposition home health service (06) | DRG 470 ==
LOC: 3E 06:16 → ASU 06:16

== ENCOUNTER 2020-08-04 22:20 | Observation (INO) ==
[2020-08-04] MEDS ORDERED: dilTIAZem HCl 5 MG/ML 5 ML VIAL IV STA (22:47)
[2020-08-04] MEDS: dilTIAZem HCl 5 MG/ML 5 ML VIAL IV ONE (22:56)
[2020-08-04] MEDS ORDERED: SODIUM CHLORIDE 0.9% 500 ML IV SCH (23:00)
[2020-08-04 23:11] LABS: Basophils # (auto) 0.01 K/uL (0-0.2); Basophils % (auto) 0.1 %; Eosinophils # (auto) 0.25 K/uL (0-0.5); Eosinophils % (auto) 2.7 %; Hematocrit (blood only) 40.3 % (37-47); Hemoglobin 13.7 g/dL (12.0-16.0); Immature Granulocytes # (auto) 0.02 K/uL (0.00-0.02); Immature Granulocytes % (auto) 0.2 %; Lymphocytes # (auto) 0.87 K/uL (1.2-3.4); Lymphocytes % (auto) 9.2 %; Mean Corpuscular Hemoglobin 33.9 pg (25-34); Mean Corpuscular Volume 99.8 fL (80-100); Mean Platelet Volume 9.9 fL (7.4-10.4); Monocytes # (auto) 1.24 K/uL (0.11-0.59); Monocytes % (auto) 13.2 %; Neutrophils # (auto) 7.02 K/uL (1.4-6.5); Neutrophils % (auto) 74.6 %; Platelet Count 224 K/uL (130-400); RDW Coefficient of Variation 14.8 % (11.5-14.5); RDW Standard Deviation 54.6 fL (36.4-46.3); Red Blood Count 4.04 M/uL (4.2-5.4); White Blood Count 9.41 K/uL (4.8-10.8)
[2020-08-04] MEDS ORDERED: ACETAMINOPHEN 1,000 MG/100 ML VIAL IV STA (23:30)
[2020-08-04 23:34] LABS: Alanine Aminotransferase 73 U/L (12-78); Albumin Level 3.1 gm/dl (3.4-5.0); Aspartate Aminotransferase 47 U/L (15-37); BUN Creatinine Ratio 22.5 (10-20); Blood Urea Nitrogen 20 mg/dl (7-18); Calcium 9.4 mg/dl (8.5-10.1); Carbon Dioxide 26 mmol/L (21-32); Chloride 111 mmol/L (98-107); Creatinine Clr Calc Pharmacy 34.9 ml/min; Est GFR (African American) 67.1; Est GFR (Non-African American) 57.9; Glucose 113 mg/dl (70-99); Magnesium 1.9 mg/dl (1.8-2.4); Potassium 3.9 mmol/L (3.5-5.1); Sodium 142 mmol/L (136-145)
[2020-08-04 23:45] LABS: Albumin Globulin Ratio 1.1 (0.9-2); Alkaline Phosphatase 77 U/L (45-117); Bilirubin,Total 0.7 mg/dl (0.2-1); Creatine Kinase 142 U/L (26-192); Globulin 2.8 gm/dl (2.5-4.0); Total Protein 5.9 gm/dl (6.4-8.2); Troponin I < 0.015 ng/ml (0-0.045)
[2020-08-05] MEDS ORDERED: OPTIRAY 320 125ml IV ONE (00:41)
--- NOTE | 2020-08-05 00:51 | Emergency Department Note ---
History of Present Illness General Chief complaint: Cardiac Assessment Stated complaint: HYPERTENSION, POSSIBLE A-FIB Time Seen by Provider: 08/04/20 22:41 History of Present Illness Maximum Pain Intensity: 4 This 89-year-old presents to the ER complaining of feeling fatigued with racing heart and headache with known A. fib on Eliquis and has not missed a dose Location: Generalized Quality: Fatigued Severity: Moderate Duration: Today Timing: Day Context: Patient was concerned and came in Modifying factors: better with rest; worse with activity Patient denies chest pain, fevers, abdominal pain, vomiting, diarrhea, urinary symptoms. She has not missed any doses of her Eliquis or metoprolol. Home Medications Medication Instructions Recorded Confirmed Type B-complex with vitamin C 1 cap PO QAM 01/13/19 08/05/20 History calcium carbonate-vitamin D3 250 1 tab PO BID tab 01/13/19 08/05/20 History mg-125 unit tablet flaxseed oil 1,000 mg capsule 1,000 mg PO QAM 01/13/19 08/05/20 History magnesium oxide 400 mg (241.3 mg 250 mg PO QAM tab 01/13/19 08/05/20 History magnesium) tablet niacin 500 mg tablet 500 mg PO QAM tab 01/13/19 08/05/20 History omega-3 fatty acids 1,000 mg 1,000 mg PO QAM 01/13/19 08/05/20 History capsule ferrous sulfate 325 mg PO QAM 06/03/19 08/05/20 History turmeric 400 mg capsule 500 mg PO QAM cap 07/25/19 08/05/20 History apixaban 2.5 mg tablet 2.5 mg PO BID #180 tab 10/31/19 08/05/20 Rx metoprolol succinate 25 mg 25 mg PO BID #180 tab 01/02/20 08/05/20 Rx tablet,extended release 24 hr pantoprazole 40 mg tablet,delayed 40 mg PO DAILY #90 tab 04/23/20 08/05/20 Rx release cholecalciferol (vitamin D3) 50 50 mcg PO DAILY #30 cap 07/17/20 08/05/20 Rx mcg (2,000 unit) capsule levothyroxine 75 mcg tablet 75 mcg PO QAM #30 tab 08/01/20 08/05/20 Rx Allergies Allergy/AdvReac Type Severity Reaction Status Date / Time montelukast [From Singulair] Allergy Severe swelling Verified 08/05/20 00:09 nickel Allergy Mild RASH Verified 08/05/20 00:09 house dust Allergy Unknown Unknown Verified 08/05/20 00:09 tree and shrub pollen Allergy Unknown Unknown Verified 08/05/20 00:09 Past Med/Surg History Medical History (Updated 08/05/20 @ 03:50 by Sally Xie PA-C) Diastolic dysfunction DJD (degenerative joint disease) GERD (gastroesophageal reflux disease) Well controlled and stable with PPI HTN (hypertension) Hypothyroidism (acquired) Mitral valve regurgitation Mild per 2017 ECHO Osteoporosis, unspecified Permanent atrial fibrillation On Eliquis and Metoprolol- Dx'ed 2017- Follows with cardio - No recent palpitations Photosensitive contact dermatitis Pulmonary nodule Surgical History H/O colonoscopy (02/28/09) Benign strips of mucosa, without any pathological findings. History of right oophorectomy S/P appendectomy S/P cataract surgery bilateral S/P eye surgery bilateral lower ectropion repair S/P tonsillectomy S/P total abdominal hysterectomy 10/22/10 Status post total replacement of hip LEFT Family History Mother , 66 breast cancer Breast cancer Sister Breast cancer Brother Carcinoma of parathyroid gland Son Epilepsy Father , 90 No problems noted. Denies family history of Ovarian cancer Prostate cancer Myocardial infarction Colorectal cancer Social History Smoking Status: Former smoker Tobacco Type: Cigarettes Number of Years Since Quit: 40; Second Hand Exposure: No; Hx Alcohol Use: Yes Alcohol type: wine Alcohol Intake Frequency: Monthly or Less Hx Substance Use: No Preferred Language: Georgian Communication Ability: Effective Visual Impairment: No Limitations Hearing Ability: Use of Hearing Aid Program Management Analyst Required: No Beliefs That Will Affect Care: None marital status: / Current Living Situation: Alone Current Living Situation Comment: [facility] current occupational status: retired Feels Safe at Home: Yes Childhood Exposure to Second-Hand Smoke: Yes caffeine: Yes (Coffee 1/2 cup in the AM - Tea one cup daily.) during the past year weight has: remained stable Dental Care, Regularly: Yes Physical Activity Frequency: Daily Seatbelt Use: always Sunscreen Use: Yes Assistive Devices: Glasses, Hearing Aid - Bilateral and Walker Review of Systems A total of 10 systems reviewed and were otherwise negative Physical Exam Vital Signs Vital Signs - 24 hr 08/04/20 22:21 08/04/20 22:37 08/04/20 22:42 Temperature 36.7 C Temperature Source Temporal Artery Scan Pulse Rate 130 H 123 H 123 H Pulse Rate [Apical] Pulse Rate from SpO2 Sensor 129 H 120 H Respiratory Rate 20 27 H 30 H Respiratory Effort / Characteristics Non-Labored Spontaneous Respiratory Depth Normal Respiratory Pattern Regular Blood Pressure 178/105 H 162/116 H Blood Pressure Mean 129 131 Blood Pressure Position Sitting Pulse Oximetry 97 91 92 Oxygen Delivery Method Room Air Room Air Room Air Oxygen Flow Rate Sepsis Recent Fever Within 48 Hours No Sepsis New/Unexplained Change in Mental Status N/A Sepsis Action Taken by Nursing No Action Required 08/04/20 23:00 08/04/20 23:30 08/05/20 00:00 Temperature Temperature Source Pulse Rate 105 H 103 H 99 H Pulse Rate [Apical] Pulse Rate from SpO2 Sensor 108 H 106 H 101 H Respiratory Rate 28 H 29 H 31 H Respiratory Effort / Characteristics Respiratory Depth Respiratory Pattern Blood Pressure 133/98 153/100 H 141/94 H Blood Pressure Mean 109 117 109 Blood Pressure Position Pulse Oximetry 92 91 90 Oxygen Delivery Method Room Air Room Air Room Air Oxygen Flow Rate Sepsis Recent Fever Within 48 Hours Sepsis New/Unexplained Change in Mental Status Sepsis Action Taken by Nursing 08/05/20 00:01 08/05/20 01:00 08/05/20 01:20 Temperature Temperature Source Pulse Rate 106 H 105 H Pulse Rate [Apical] 98 H Pulse Rate from SpO2 Sensor 114 H 112 H Respiratory Rate 29 H 30 H 24 Respiratory Effort / Characteristics Non-Labored Spontaneous Respiratory Depth Normal Respiratory Pattern Blood Pressure 138/96 Blood Pressure Mean 110 Blood Pressure Position Pulse Oximetry 92 96 94 Oxygen Delivery Method Room Air Nasal Cannula Nasal Cannula Oxygen Flow Rate 2 2 Sepsis Recent Fever Within 48 Hours Sepsis New/Unexplained Change in Mental Status Sepsis Action Taken by Nursing 08/05/20 01:30 08/05/20 02:00 08/05/20 02:01 Temperature Temperature Source Pulse Rate 96 H 100 H 92 H Pulse Rate [Apical] Pulse Rate from SpO2 Sensor 93 H 102 H 98 H Respiratory Rate 37 H 38 H 36 H Respiratory Effort / Characteristics Respiratory Depth Respiratory Pattern Blood Pressure 147/87 H 146/90 H Blood Pressure Mean 107 108 Blood Pressure Position Pulse Oximetry 92 95 94 Oxygen Delivery Method Nasal Cannula Nasal Cannula Nasal Cannula Oxygen Flow Rate 2 2 2 Sepsis Recent Fever Within 48 Hours Sepsis New/Unexplained Change in Mental Status Sepsis Action Taken by Nursing 08/05/20 02:30 08/05/20 03:19 Temperature Temperature Source Pulse Rate 110 H 88 Pulse Rate [Apical] Pulse Rate from SpO2 Sensor 104 H Respiratory Rate 19 24 Respiratory Effort / Characteristics Respiratory Depth Respiratory Pattern Blood Pressure 154/81 H Blood Pressure Mean 105 Blood Pressure Position Pulse Oximetry 93 94 Oxygen Delivery Method Nasal Cannula Nasal Cannula Oxygen Flow Rate 2 2 Sepsis Recent Fever Within 48 Hours Sepsis New/Unexplained Change in Mental Status Sepsis Action Taken by Nursing VITALS: Vitals are noted on the nurse's note and reviewed by myself. Vital signs s tachycardic table. GENERAL: Pleasant elderly female, in no acute distress, nondiaphoretic, well- developed well-nourished. SKIN: Capillary reflex less than 2 seconds. HEENT: Normocephalic. PERRLA. EOMI. Nares patent. Mucous membranes moist. Neck is supple without nuchal rigidity. HEART: Tachycardic irregularly irregular LUNGS: Clear to auscultation bilaterally without wheezes, rales or rhonchi. No retractions or accessory muscle use. ABDOMEN: Positive bowel sounds x 4. Normal tympanic percussion. Soft, nontender, without masses or organomegaly. Kay sign negative. No guarding or rebound tenderness. no cva tenderness MUSCULOSKELETAL: No gross musculoskeletal defects. NEURO: Patient was alert and oriented to person place and time. No focal neurological deficits. Course Administered Medications Discontinued Medications Diltiazem HCl (Diltiazem Hcl 5 Mg/Ml 5 Ml Vial) Confirm Administered Dose 25 mg IV .ParasitX-MED ONE Stop: 08/04/20 22:47 Last Increment: 08/05/20 01:00 Dose: 10 mg Documented by: [id number] Cosigned by: [id number] Diltiazem HCl (Diltiazem Hcl 5 Mg/Ml 5 Ml Vial) 20 mg IV NOW STA Stop: 08/04/20 22:48 Last Admin: 08/04/20 22:55 Dose: 10 mg Documented by: [id number] Cosigned by: [id number] Sodium Chloride (Nss) 500 mls @ 999 mls/hr IV .Q31M ALVERTO Stop: 08/04/20 23:30 Last Infusion: 08/04/20 23:39 Dose: 0 mls/hr Documented by: [id number] Admin: 08/04/20 22:54 Dose: 999 mls/hr Documented by: [id number] Acetaminophen (Ofirmev) 1,000 mg in 100 mls @ 400 mls/hr IV NOW STA Stop: 08/04/20 23:44 Last Infusion: 08/04/20 23:54 Dose: 0 mls/hr Documented by: [id number] Admin: 08/04/20 23:38 Dose: 400 mls/hr Documented by: [id number] Ioversol (Optiray 320 125ml) 120 ml IV ONCE ONE Stop: 08/05/20 00:42 Last Admin: 08/05/20 00:41 Dose: 120 ml Documented by: [id number] Metoprolol Succinate (Metoprolol Succ 50mg Ext Rel Tab) 50 mg PO NOW STA Stop: 08/05/20 02:58 Last Admin: 08/05/20 03:17 Dose: 50 mg Documented by: [id number] Metoprolol Tartrate (Metoprolol Tartrate 50 Mg Tab) Confirm Administered Dose 50 mg .ROUTE .STK-MED ONE Stop: 08/05/20 03:06 Last Admin: 08/05/20 03:10 Dose: Not Given Documented by: [id number] Critical Care Time Critical Care Time: Yes Total Critical Care Time: 35 I have personally spent 35 minutes of critical care time in the direct management of this patient. This includes bedside care, interpretation of diagnostic studies, and testing, discussion with consultants, patient, and f amily members, and other required patient management activities. This 35 minutes is in excess of all separately billable procedures. Medical Decision Making Medical Records Attestation: I reviewed the patient's medical records. Home Medications Current Medication List: was personally reviewed by me Laboratory Data Attestation: I reviewed the patient's lab results. Result diagrams: 08/04/20 22:57 08/04/20 22:57 Lab Results 08/04/20 08/04/20 08/05/20 Range/Units 22:57 22:57 00:40 WBC 9.41 (4.8-10.8) K/uL RBC 4.04 L (4.2-5.4) M/uL Hgb 13.7 (12.0-16.0) g/dL POC Hgb (12.0-16.0) g/dl Hct 40.3 (37-47) % POC Hct (37-47) % MCV 99.8 (80-100) fL MCH 33.9 (25-34) pg MCHC 34.0 (32-36) g/dL RDW Std Deviation 54.6 H (36.4-46.3) fL RDW Coeff of Buzz 14.8 H (11.5-14.5) % Plt Count 224 (130-400) K/uL MPV 9.9 (7.4-10.4) fL Immature Gran % (Auto) 0.2 % Neut % (Auto) 74.6 % Lymph % (Auto) 9.2 % [place] % (Auto) 13.2 % Eos % (Auto) 2.7 % Baso % (Auto) 0.1 % Neut # (Auto) 7.02 H (1.4-6.5) K/uL Lymph # (Auto) 0.87 L (1.2-3.4) K/uL [place] # (Auto) 1.24 H (0.11-0.59) K/uL Eos # (Auto) 0.25 (0-0.5) K/uL Baso # (Auto) 0.01 (0-0.2) K/uL Immature Gran # (Auto) 0.02 (0.00-0.02) K/uL POC Sodium (135-144) mmol/L Sodium 142 (136-145) mmol/L POC Potassium (3.3-5.0) mmol/L Potassium 3.9 (3.5-5.1) mmol/L POC Chloride (101-112) mmol/L Chloride 111 H (98-107) mmol/L Carbon Dioxide 26 (21-32) mmol/L POC Total CO2 (24-31) mmol/L Anion Gap 5.0 (3-11) POC Anion Gap (16-25) mmol/L POC BUN (7-18) mg/dl BUN 20 H (7-18) mg/dl Creatinine 0.89 (0.6-1.2) mg/dl POC Creatinine (0.6-1.3) mg/dl Est Cr Clr Drug Dosing 34.9 ml/min Est GFR ( Amer) 67.1 Est GFR (Non-Af Amer) 57.9 BUN/Creatinine Ratio 22.5 H (10-20) Glucose 113 H (70-99) mg/dl POC Glucose (other) (70-99) mg/dl Calcium 9.4 (8.5-10.1) mg/dl POC Ioniz Calcium Edgar (1.12-1.32) mmol/l Magnesium 1.9 (1.8-2.4) mg/dl Total Bilirubin 0.7 (0.2-1) mg/dl AST 47 H (15-37) U/L ALT 73 (12-78) U/L Alkaline Phosphatase 77 (45-117) U/L Total Creatine Kinase 142 (26-192) U/L Troponin I < 0.015 (0-0.045) ng/ml NT-Pro-B Natriuret Pep 5204 H (0-1800) pg/ml Total Protein 5.9 L (6.4-8.2) gm/dl Albumin 3.1 L (3.4-5.0) gm/dl Globulin 2.8 (2.5-4.0) gm/dl Albumin/Globulin Ratio 1.1 (0.9-2) TSH 2.430 (0.300-4.500) uIu/ml Urine Color Yellow Urine Appearance Clear (Clear) Urine pH 6.5 (4.5-7.5) Ur Specific [place] 1.023 (1.000-1.030) Urine Protein Negative (Negative) Urine Glucose (UA) Negative (Negative) Urine Ketones Trace H (Negative) Urine Blood 1+ H (Negative) Urine Nitrite Negative (Negative) Urine Bilirubin Negative (Negative) Urine Urobilinogen Negative (Negative) Ur Leukocyte Esterase Trace H (Negative) Urine WBC (Auto) 1-5 (0-5) /hpf Urine RBC (Auto) 5-10 H (0-4) /hpf U Hyaline Cast (Auto) 1-5 (0-5) /lpf U Epithel Cells (Auto) 20-30 H (0-5) /lpf Urine Bacteria (Auto) Negative (Negative) COVID-19 Eval Order SARS-CoV-2 (PCR) (Negative) Influenza Type A (PCR) (Neg) Influenza Type B (PCR) (Neg) RSV (RT-PCR) (Neg) 08/05/20 08/05/20 08/05/20 Range/Units 01:11 01:43 01:43 WBC (4.8-10.8) K/uL RBC (4.2-5.4) M/uL Hgb (12.0-16.0) g/dL POC Hgb 12.6 (12.0-16.0) g/dl Hct (37-47) % POC Hct 37 (37-47) % MCV (80-100) fL MCH (25-34) pg MCHC (32-36) g/dL RDW Std Deviation (36.4-46.3) fL RDW Coeff of Buzz (11.5-14.5) % Plt Count (130-400) K/uL MPV (7.4-10.4) fL Immature Gran % (Auto) % Neut % (Auto) % Lymph % (Auto) % [place] % (Auto) % Eos % (Auto) % Baso % (Auto) % Neut # (Auto) (1.4-6.5) K/uL Lymph # (Auto) (1.2-3.4) K/uL [place] # (Auto) (0.11-0.59) K/uL Eos # (Auto) (0-0.5) K/uL Baso # (Auto) (0-0.2) K/uL Immature Gran # (Auto) (0.00-0.02) K/uL POC Sodium 140 (135-144) mmol/L Sodium (136-145) mmol/L POC Potassium 3.8 (3.3-5.0) mmol/L Potassium (3.5-5.1) mmol/L POC Chloride 106 (101-112) mmol/L Chloride (98-107) mmol/L Carbon Dioxide (21-32) mmol/L POC Total CO2 25 (24-31) mmol/L Anion Gap (3-11) POC Anion Gap 14.0 L (16-25) mmol/L POC BUN 18 (7-18) mg/dl BUN (7-18) mg/dl Creatinine (0.6-1.2) mg/dl POC Creatinine 0.7 (0.6-1.3) mg/dl Est Cr Clr Drug Dosing ml/min Est GFR ( Amer) Est GFR (Non-Af Amer) BUN/Creatinine Ratio (10-20) Glucose (70-99) mg/dl POC Glucose (other) 116 H (70-99) mg/dl Calcium (8.5-10.1) mg/dl POC Ioniz Calcium Edgar 1.16 (1.12-1.32) mmol/l Magnesium (1.8-2.4) mg/dl Total Bilirubin (0.2-1) mg/dl AST (15-37) U/L ALT (12-78) U/L Alkaline Phosphatase (45-117) U/L Total Creatine Kinase (26-192) U/L Troponin I (0-0.045) ng/ml NT-Pro-B Natriuret Pep (0-1800) pg/ml Total Protein (6.4-8.2) gm/dl Albumin (3.4-5.0) gm/dl Globulin (2.5-4.0) gm/dl Albumin/Globulin Ratio (0.9-2) TSH (0.300-4.500) uIu/ml Urine Color Urine Appearance (Clear) Urine pH (4.5-7.5) Ur Specific [place] (1.000-1.030) Urine Protein (Negative) Urine Glucose (UA) (Negative) Urine Ketones (Negative) Urine Blood (Negative) Urine Nitrite (Negative) Urine Bilirubin (Negative) Urine Urobilinogen (Negative) Ur Leukocyte Esterase (Negative) Urine WBC (Auto) (0-5) /hpf Urine RBC (Auto) (0-4) /hpf U Hyaline Cast (Auto) (0-5) /lpf U Epithel Cells (Auto) (0-5) /lpf Urine Bacteria (Auto) (Negative) COVID-19 Eval Order CovFluRsv at [facility] SARS-CoV-2 (PCR) NEGATIVE (Negative) Influenza Type A (PCR) Negative (Neg) Influenza Type B (PCR) Negative (Neg) RSV (RT-PCR) Negative (Neg) Imaging Data Attestation: I personally reviewed and interpreted this imaging study as follows: MDM Narrative Prior records/ancillary studies reviewed and summarized above. Nursing notes reviewed. Additional history obtained from family. The patient's history was concerning for feeling fatigue, racing heart and headache. Differential diagnosis: Etiologies such as metabolic, infection, hypo/hyperglycemia, electrolyte abnormalities, cardiac sources, intracerebral event, toxicologic, neurologic, as well as others were entertained. Physical examination: As above. ER treatment provided: IV Lock An order was placed for continuous cardiac monitoring. The monitor shows a rate of 60-1 50 with a A. fib rhythm. IV fluids, Cardizem On reassessment the patient felt better. Diagnostics interpretation by me: ECG: Ordered for racing heart EKG: Irregularly irregular with no acute ST-T wave changes, rate of 123. EKG compared to prior EKG. Impression A. fib with RVR interpreted by myself. Patient has known A. fib. The labs revealed negative urine, elevated BNP, negative troponin Negative Covid Imaging studies: CT CHEST With Contrast: No evidence of an acute pulmonary embolus. Small to moderate bilateral pleural effusions. Cardiomegaly. Centrilobular emphysema of the lung apices. Polycystic liver disease. Hiatal hernia. Radiologist: Jose Juan Sanchez MD Chest x-ray With increased pulmonary congestion, no pneumothorax or free air per my interpretation. Consultation: A consultation was placed with the hospitalist, Dr. Aparicio. The case was discussed and diagnostics were reviewed. The patient was evaluated in the ER for further treatment. Exam and history seem consistent with A. fib with RVR and pleural effusions. Patient was hypoxic. She was placed on oxygen and O2 came up. She is agreeable treatment plan of admission. Medicine was consulted. All questions were answered. By the evaluation outlined above emergent etiologies such as infection, electrolyte abnormalities, intracerebral event, toxologic, neurologic, abnormalities blood glucose, metabolic, as well as others were deemed relatively unlikely. The pt informed about the findings as listed above. All questions were answered and pleased with the treatment. The chart was completed utilizing [employer] Speech voice recognition software. Grammatical errors, random word insertions, pronoun errors, and incomplete sentences are an occassional consequence of this system due to software limitations, ambient noise, and hardware issues. Any formal questions or conc erns about the content, text, or information contained within the body of this dictation should be directly addressed to the physician assistant public defender for clarification. Impression & Plan Atrial fibrillation with rapid ventricular response, Pleural effusion, Hypoxemia Discharge Plan Visit Data Chief Complaint: Cardiac Assessment Stated Complaint: HYPERTENSION, POSSIBLE A-FIB ED Provider: Demond Marie ED Midlevel Provider: Sally Xie Discharge Problem: Atrial fibrillation with rapid ventricular response, Pleural effusion, Hypoxemia Patient Disposition: Admitted As Inpatient Condition: Fair Forms Stand Alone Forms: [facility] Prescriptions Prescriptions: No Action Eliquis 2.5 mg tablet 2.5 mg PO BID Qty: 180 RF: 3 metoprolol succinate [Toprol XL] 25 mg tablet extended release 24 hr 25 mg PO BID Qty: 180 RF: 3 pantoprazole 40 mg tablet,delayed release (DR/EC) 40 mg PO DAILY Qty: 90 RF: 3 cholecalciferol (vitamin D3) 50 mcg (2,000 unit) capsule 50 mcg PO DAILY Qty: 30 RF: 0 levothyroxine 75 mcg tablet 75 mcg PO QAM Qty: 30 RF: 11 calcium carbonate-vitamin D3 250-125 mg-unit tablet 1 tab PO BID RF: 0 omega-3 fatty acids [Fish Oil Concentrate] 1,000 mg capsule 1,000 mg PO QAM RF: 0 flaxseed oil 1,000 mg capsule 1,000 mg PO QAM RF: 0 magnesium oxide 400 mg (241.3 mg magnesium) tablet 250 mg PO QAM RF: 0 niacin 500 mg tablet 500 mg PO QAM RF: 0 B-complex with vitamin C capsule 1 cap PO QAM RF: 0 ferrous sulfate 325 mg (65 mg iron) Tablet 325 mg PO QAM RF: 0 turmeric 400 mg capsule 500 mg PO QAM RF: 0 Referrals Referrals: Elia Talley MD [Primary Care Provider] -
[2020-08-05 01:00] LABS: Appearance Urine Clear (Clear); Bacteria Urine Automated Negative (Negative); Bilirubin Urine Negative (Negative); Blood Urine 1+ (Negative); Color Urine Yellow; Epithelial Cell Urine Auto 20-30 /lpf (0-5); Glucose Urine UA Negative (Negative); Ketones Urine Trace (Negative); Leukocyte Esterase Urine Trace (Negative); Nitrite Urine Negative (Negative); Protein Urine Negative (Negative); Specific Gravity Urine 1.023 (1.000-1.030); Urobilinogen Urine Negative (Negative); pH Urine 6.5 (4.5-7.5)
[2020-08-05] MEDS: dilTIAZem HCl 5 MG/ML 5 ML VIAL IV ONE (01:00)
[2020-08-05 01:23] LABS: iSTAT Creatinine 0.7 mg/dl (0.6-1.3); iSTAT Hemoglobin 12.6 g/dl (12.0-16.0); iSTAT Ionized Calcium 1.16 mmol/l (1.12-1.32); iSTAT Potassium 3.8 mmol/L (3.3-5.0)
[2020-08-05 01:45] LABS: NT Pro B Type Natriuretic Pept 5204 pg/ml (0-1800)
--- NOTE | 2020-08-05 02:37 | Emergency Department Note ---
ED Visit Note Patient was seen and evaluated at the bedside w/ Nessa Xie PA-C. Please see their note for history, physical, details, and disposition. A. fib with RVR with pleural effusions. Patient was admitted to the medicine service. .
[2020-08-05 02:39] LABS: Influenza A virus by PCR Negative (Neg); Influenza B virus by PCR Negative (Neg); RSV by PCR Negative (Neg); SARS CoV2 RNA(COVID-19) InHosp NEGATIVE (Negative)
[2020-08-05] MEDS ORDERED: METOPROLOL SUCC 50MG EXT REL TAB PO STA (02:57)
--- NOTE | 2020-08-05 03:00 | History & Physical Report ---
Date of Service August 05, 2020 Assessment & Plan (1) Atrial fibrillation with rapid ventricular response: Atrial fibrillation with rapid ventricular response/permanent atrial fibrillation/hypertension- The patient will be admitted to telemetry for serial cardiac enzymes, serial EKG's, cardiac rhythm monitoring and a 2-D echocardiogram with Dopplers. Received 2 doses of Cardizem 10 mg IV with improved heart rate control from 130 down to 100. We will give metoprolol succinate 50 mg p.o. x1 now, and continue usual dosing 25 mg p.o. twice daily. Continue apixaban 2.5 mg p.o. twice daily Consult her counter help Dr. Valenzuela Present on Admission?: Yes (2) Permanent atrial fibrillation: See above Present on Admission?: Yes (3) HTN (hypertension): See above Present on Admission?: Yes (4) Pleural effusion: Bilateral pleural effusions, right greater than left. We will consult pulmonology, suspect that she would be better off having thoracentesis done than trying to diurese that volume fluid away. Present on Admission?: Yes (5) Hypothyroidism (acquired): Continue levothyroxine sodium 75 mcg daily Present on Admission?: Yes (6) Hiatal hernia: Continue pantoprazole 40 mg daily Present on Admission?: Yes History of Present Illness Chief Complaint: The patient presents to the emergency department due to multiple symptoms including generalized fatigue and weakness, racing heart rate and headache Primary Care Provider: Elia Talley MD The patient is an 89-year-old female with a past medical history including chronic dermatitis, status post right GAYATHRI, pulmonary nodule, hiatal hernia, osteopenia, LVH, mild regurgitation, permanent atrial fibrillation, hypertension, hypothyroidism and photosensitive contact dermatitis. Upon presentation to the emergency department, patient was found to be in atrial fibrillation with RVR with rate up to 130. She received Cardizem 10 mg IV in series x2, with improved heart rate to the low 100s. Allergies Allergy/AdvReac Type Severity Reaction Status Date / Time montelukast [From [facility]] Allergy Severe swelling Verified 08/05/20 00:09 nickel Allergy Mild RASH Verified 08/05/20 00:09 house dust Allergy Unknown Unknown Verified 08/05/20 00:09 tree and shrub pollen Allergy Unknown Unknown Verified 08/05/20 00:09 Home Medications Medication Instructions Recorded Confirmed Type B-complex with vitamin C 1 cap PO QAM 01/13/19 08/05/20 History calcium carbonate-vitamin D3 250 1 tab PO BID tab 01/13/19 08/05/20 History mg-125 unit tablet flaxseed oil 1,000 mg capsule 1,000 mg PO QAM 01/13/19 08/05/20 History magnesium oxide 400 mg (241.3 mg 250 mg PO QAM tab 01/13/19 08/05/20 History magnesium) tablet niacin 500 mg tablet 500 mg PO QAM tab 01/13/19 08/05/20 History omega-3 fatty acids 1,000 mg 1,000 mg PO QAM 01/13/19 08/05/20 History capsule ferrous sulfate 325 mg PO QAM 06/03/19 08/05/20 History turmeric 400 mg capsule 500 mg PO QAM cap 07/25/19 08/05/20 History apixaban 2.5 mg tablet 2.5 mg PO BID #180 tab 10/31/19 08/05/20 Rx metoprolol succinate 25 mg 25 mg PO BID #180 tab 01/02/20 08/05/20 Rx tablet,extended release 24 hr pantoprazole 40 mg tablet,delayed 40 mg PO DAILY #90 tab 04/23/20 08/05/20 Rx release cholecalciferol (vitamin D3) 50 50 mcg PO DAILY #30 cap 07/17/20 08/05/20 Rx mcg (2,000 unit) capsule levothyroxine 75 mcg tablet 75 mcg PO QAM #30 tab 08/01/20 08/05/20 Rx Past Med/Surg History Medical History (Updated 08/05/20 @ 03:50 by Sally Xie PA-C) Diastolic dysfunction DJD (degenerative joint disease) GERD (gastroesophageal reflux disease) Well controlled and stable with PPI HTN (hypertension) Hypothyroidism (acquired) Mitral valve regurgitation Mild per 2017 ECHO Osteoporosis, unspecified Permanent atrial fibrillation On Eliquis and Metoprolol- Dx'ed 2017- Follows with cardio - No recent palpitations Photosensitive contact dermatitis Pulmonary nodule Surgical History H/O colonoscopy (02/28/09) Benign strips of mucosa, without any pathological findings. History of right oophorectomy S/P appendectomy S/P cataract surgery bilateral S/P eye surgery bilateral lower ectropion repair S/P tonsillectomy S/P total abdominal hysterectomy 10/22/10 Status post total replacement of hip LEFT Family History Mother , 66 breast cancer Breast cancer Sister Breast cancer Brother Carcinoma of parathyroid gland Son Epilepsy Father , 90 No problems noted. Denies family history of Ovarian cancer Prostate cancer Myocardial infarction Colorectal cancer Social History Smoking Status: Former smoker Tobacco Type: Cigarettes Number of Years Since Quit: 40; Second Hand Exposure: No; Hx Alcohol Use: Yes Alcohol type: beer and wine Alcohol Intake Frequency: Monthly or Less Hx Substance Use: No Preferred Language: Occitan Communication Ability: Effective Visual Impairment: No Limitations Hearing Ability: Use of Hearing Aid Eating Disorder Psychologist Required: No Beliefs That Will Affect Care: None marital status: / Current Living Situation: Alone Current Living Situation Comment: [facility] current occupational status: retired Other Information That Helps Us Care for You: No Feels Safe at Home: Yes Safety Concerns: Feels Safe At This Time Childhood Exposure to Second-Hand Smoke: Yes caffeine: Yes (Coffee 1/2 cup in the AM - Tea one cup daily.) during the past year weight has: remained stable Dental Care, Regularly: Yes Physical Activity Frequency: Daily Seatbelt Use: always Sunscreen Use: Yes Assistive Devices: Oxygen - Continuous Assistive Devices Comment: partial upper and lower Review of Systems Review of Systems: The patient denies chest pain, cough, lower extremity swelling, sore throat, fevers, chills, sweats, nausea, vomiting, diarrhea , constipation, abdominal pain, pelvic pain, blood in urine or stool, dysuria, urinary frequency or urgency, loss of consciousness, rash, abnormal bruising or bleeding, imbalance, focal weakness, numbness or tingling in arms or legs, back or neck pain, or night sweats. The review of systems is otherwise negative other than for that already noted above, and at least 10 systems have been reviewed. Physical Exam Physical Exam: The patient is awake, alert and oriented 3, normocephalic and atraumatic, lying in bed and in no acute distress. HEENT--PERRL, EOMI, mucous membranes and oropharynx dry. Neck--supple. No JVD. No bruits. Thyroid normal, trachea midline, no adenopathy. Heart--irregularly irregular. No murmurs, rubs or gallops. Lungs--clear bilaterally, no respiratory distress, no accessory muscle use. Abdomen--normal bowel sounds and soft. Nontender. Nondistended, no hernias or masses, no organomegaly. Extremities--no cyanosis or clubbing. No edema. Dermatologic--normal skin turgor, normal color, no abnormal lymph nodes, no claire h. Neurologic--cranial nerves II through XII grossly intact. Rheumatologic--limited exam Psychiatric--normal affect. Results & Data Results & Data ([facility]) Vital Signs (Past 12 Hours) Vital Signs Temp Pulse Pulse Resp BP Pulse Ox 08/05/20 02:30 110 H 19 93 08/05/20 02:01 92 H 36 H 94 08/05/20 02:00 100 H 38 H 146/90 H 95 08/05/20 01:30 96 H 37 H 147/87 H 92 08/05/20 01:20 98 H 24 94 08/05/20 01:00 105 H 30 H 138/96 96 08/05/20 00:01 106 H 29 H 92 08/05/20 00:00 99 H 31 H 141/94 H 90 08/04/20 23:30 103 H 29 H 153/100 H 91 08/04/20 23:00 105 H 28 H 133/98 92 08/04/20 22:42 123 H 30 H 92 08/04/20 22:37 123 H 27 H 162/116 H 91 08/04/20 22:21 98.1 F 130 H 20 178/105 H 97 Laboratory Results Laboratory Results WBC 9.41 K/uL (4.8-10.8) 08/04/20 22:57 RBC 4.04 M/uL (4.2-5.4) L 08/04/20 22:57 Hgb 13.7 g/dL (12.0-16.0) 08/04/20 22:57 POC Hgb 12.6 g/dl (12.0-16.0) 08/05/20 01:11 Hct 40.3 % (37-47) 08/04/20 22:57 POC Hct 37 % (37-47) 08/05/20 01:11 MCV 99.8 fL (80-100) 08/04/20 22:57 MCH 33.9 pg (25-34) 08/04/20 22:57 MCHC 34.0 g/dL (32-36) 08/04/20 22:57 RDW Std Deviation 54.6 fL (36.4-46.3) H 08/04/20 22:57 RDW Coeff of Buzz 14.8 % (11.5-14.5) H 08/04/20 22:57 Plt Count 224 K/uL (130-400) 08/04/20 22:57 MPV 9.9 fL (7.4-10.4) 08/04/20 22:57 Immature Gran % (Auto) 0.2 % 08/04/20 22:57 Neut % (Auto) 74.6 % 08/04/20 22:57 Lymph % (Auto) 9.2 % 08/04/20 22:57 [place] % (Auto) 13.2 % 08/04/20 22:57 Eos % (Auto) 2.7 % 08/04/20 22:57 Baso % (Auto) 0.1 % 08/04/20 22:57 Neut # (Auto) 7.02 K/uL (1.4-6.5) H 08/04/20 22:57 Lymph # (Auto) 0.87 K/uL (1.2-3.4) L 08/04/20 22:57 [place] # (Auto) 1.24 K/uL (0.11-0.59) H 08/04/20 22:57 Eos # (Auto) 0.25 K/uL (0-0.5) 08/04/20 22:57 Baso # (Auto) 0.01 K/uL (0-0.2) 08/04/20 22:57 Immature Gran # (Auto) 0.02 K/uL (0.00-0.02) 08/04/20 22:57 POC Sodium 140 mmol/L (135-144) 08/05/20 01:11 Sodium 142 mmol/L (136-145) 08/04/20 22:57 POC Potassium 3.8 mmol/L (3.3-5.0) 08/05/20 01:11 Potassium 3.9 mmol/L (3.5-5.1) 08/04/20 22:57 POC Chloride 106 mmol/L (101-112) 08/05/20 01:11 Chloride 111 mmol/L (98-107) H 08/04/20 22:57 Carbon Dioxide 26 mmol/L (21-32) 08/04/20 22:57 POC Total CO2 25 mmol/L (24-31) 08/05/20 01:11 Anion Gap 5.0 (3-11) 08/04/20 22:57 POC Anion Gap 14.0 mmol/L (16-25) L 08/05/20 01:11 POC BUN 18 mg/dl (7-18) 08/05/20 01:11 BUN 20 mg/dl (7-18) H 08/04/20 22:57 Creatinine 0.89 mg/dl (0.6-1.2) 08/04/20 22:57 POC Creatinine 0.7 mg/dl (0.6-1.3) 08/05/20 01:11 Est Cr Clr Drug Dosing 34.9 ml/min 08/04/20 22:57 Est GFR ( Amer) 67.1 08/04/20 22:57 Est GFR (Non-Af Amer) 57.9 08/04/20 22:57 BUN/Creatinine Ratio 22.5 (10-20) H 08/04/20 22:57 Glucose 113 mg/dl (70-99) H 08/04/20 22:57 POC Glucose (other) 116 mg/dl (70-99) H 08/05/20 01:11 Calcium 9.4 mg/dl (8.5-10.1) 08/04/20 22:57 POC Ioniz Calcium Edgar 1.16 mmol/l (1.12-1.32) 08/05/20 01:11 Magnesium 1.9 mg/dl (1.8-2.4) 08/04/20 22:57 Total Bilirubin 0.7 mg/dl (0.2-1) 08/04/20 22:57 AST 47 U/L (15-37) H 08/04/20 22:57 ALT 73 U/L (12-78) 08/04/20 22:57 Alkaline Phosphatase 77 U/L (45-117) 08/04/20 22:57 Total Creatine Kinase 142 U/L (26-192) 08/04/20 22:57 Troponin I < 0.015 ng/ml (0-0.045) 08/04/20 22:57 NT-Pro-B Natriuret Pep 5204 pg/ml (0-1800) H 08/04/20 22:57 Total Protein 5.9 gm/dl (6.4-8.2) L 08/04/20 22:57 Albumin 3.1 gm/dl (3.4-5.0) L 08/04/20 22:57 Globulin 2.8 gm/dl (2.5-4.0) 08/04/20 22:57 Albumin/Globulin Ratio 1.1 (0.9-2) 08/04/20 22: TSH 2.430 uIu/ml (0.300-4.500) 08/04/20 22:57 Urine Color Yellow 08/05/20 00:40 Urine Appearance Clear (Clear) 08/05/20 00:40 Urine pH 6.5 (4.5-7.5) 08/05/20 00:40 Ur Specific [place] 1.023 (1.000-1.030) 08/05/20 00:40 Urine Protein Negative (Negative) 08/05/20 00:40 Urine Glucose (UA) Negative (Negative) 08/05/20 00:40 Urine Ketones Trace (Negative) H 08/05/20 00:40 Urine Blood 1+ (Negative) H 08/05/20 00:40 Urine Nitrite Negative (Negative) 08/05/20 00:40 Urine Bilirubin Negative (Negative) 08/05/20 00:40 Urine Urobilinogen Negative (Negative) 08/05/20 00:40 Ur Leukocyte Esterase Trace (Negative) H 08/05/20 00:40 Urine WBC (Auto) 1-5 /hpf (0-5) 08/05/20 00:40 Urine RBC (Auto) 5-10 /hpf (0-4) H 08/05/20 00:40 U Hyaline Cast (Auto) 1-5 /lpf (0-5) 08/05/20 00:40 U Epithel Cells (Auto) 20-30 /lpf (0-5) H 08/05/20 00:40 Urine Bacteria (Auto) Negative (Negative) 08/05/20 00:40 COVID-19 Eval Order CovFluRsv at [facility] 08/05/20 01:43 SARS-CoV-2 (PCR) NEGATIVE (Negative) 08/05/20 01:43 Influenza Type A (PCR) Negative (Neg) 08/05/20 01:43 Influenza Type B (PCR) Negative (Neg) 08/05/20 01:43 RSV (RT-PCR) Negative (Neg) 08/05/20 01:43 Diagnostic Findings [facility] Patient: VIOLET WESTFALL (Female) : 32 Status: ER Date: 08/05/20 01:31 Room #: History: HYPERTENSION, SOB , EVAL FOR PE , 120 ML OPTIRAY 320 Slices: [phone] Priors: Tech: Joselo Nicholas @ [id number] Exams: CT CHEST With Contrast Contrast: IV Amt: 120 ML Accession Numbers: [id number] Preliminary Findings Only See Final Report For Complete Findings CT CHEST With Contrast: No evidence of an acute pulmonary embolus. Small to moderate bilateral pleural effusions. Cardiomegaly. Centrilobular emphysema of the lung apices. Polycystic liver disease. Hiatal hernia. Radiologist: Jose Juan Sanchez MD Study ready at 01:38 and initial results transmitted at 02:01 *This report constitutes a preliminary interpretation only. Non-acute findings felt to be unrelated to the clinical presentation may not be discussed in this report. The study will be interpreted and a final report will be generated by the local Radiologist the following shift. To reach the hospital radiology department call [phone]. If a discrepancy is found between the preliminary and final interpretations of this study, please notify us via our Client Portal at [email or web address] under QA Exams.You can also fax this report with a description of the discrepancy, or include the final report, to our daytime fax number [phone].If faxing, please indicate the severity of discrepancy using one of the following categories: [ ] 1 - Agree/Informational [ ] 2 - Unlikely to Affect Management [ ] 3 - Possible Eventual Change of Management [ ] 4 - Probable Immediate Change of Management For all other patient related information, please fax us at [phone]. [id number] Code Status & VTE Plan Code Status Full code VTE Prophylaxis Plan VTE Prophylaxis will be ordered: Yes PG Care Time/CCT Total # of Minutes Spent Total Time Spent with Patient: Total time spent is greater than 50% in coordination of care (as documented) at patient's floor/unit and/or counseling patient: Coding Level of Care Code 28792 Initial Inpt Care Lvl 3 Diagnoses Atrial fibrillation with rapid ventricular response I48.91 Permanent atrial fibrillation I48.2 HTN (hypertension) I10 Hypertension type: essential hypertension Pleural effusion J90 Hypothyroidism (acquired) E03.9 Hiatal hernia K44.9 (1) HTN (hypertension) Hypertension type: essential hypertension Qualified Code(s): I10 - Essential (primary) hypertension
[2020-08-05] MEDS ORDERED: METOPROLOL TARTRATE 50 MG TAB ONE (03:05)
[2020-08-05] MEDS ORDERED: ONDANSETRON INJ 2 MG/ML 2 ML VIAL IV PRN (04:04)
[2020-08-05] MEDS ORDERED: ACETAMINOPHEN 325 MG TAB PO PRN (04:04)
[2020-08-05] MEDS ORDERED: NITROGLYCERIN SL 0.4 MG/TAB TAB SL PRN (04:04)
[2020-08-05] MEDS ORDERED: NSS + 20MEQ KCL 20 MEQ/1,000 ML BAG IV SCH (05:00)
[2020-08-05] MEDS: LEVOTHYROXINE SODIUM 75 MCG TABLET PO SCH (06:04)
[2020-08-05] MEDS ORDERED: Heparin IV Adult Wt-Based Standard *NO* Bolus Protocol IV SCH (07:41)
--- NOTE | 2020-08-05 07:45 | Pulmonary Consultation ---
Date of Consultation August 05, 2020 Assessment & Plan (1) Pleural effusion: CT chest 08/05/2020 personally reviewed: Centrilobular and paraseptal emphysema appreciated especially in the right upper lobe, bilateral pleural effusion more on the right side. 12 mm right lower lobe pulmonary nodule. It has been unchanged compared to CAT scan done December 2019. But it is new compared to CT abdominal pelvis done back in 2007. Minimal but insignificant mediastinal lymphadenopathy. --Bilateral pleural effusion Likely from underlying diastolic CHF with possible systolic as well Would recommend repeat 2D echo Diuresis as tolerated Patient is on apixaban. Last dose was on 08/04/2020 9 a.m. Start heparin drip --Acute hypoxic respiratory failure Likely secondary to pulmonary edema but bilateral pleural effusion from diastolic/systolic CHF Continue with diuresis as tolerated O2 supplementation to keep oxygen saturation between 90-92% BiPAP nightly and as needed shortness of breath --Pulmonary nodule RLL 12mm no change in size compared to 12/2019. Stability for 6 months Patient use to be a smoker but quit more than 20 years ago Would recommend to repeat CT chest in 1 year. 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 I will start the patient on Incruse inhaler to be used on a daily basis. Pulmonary function test to be done as an outpatient. -Plan: Hold apixaban, start heparin drip at 9 AM today. Patient should be off apixaban for at least 48 hours before the thoracentesis could be thought of. Continue with diuresis. After 48 hours if the patient has significant fluid will think about thoracentesis Please note the above document was generated using voice recognition software. It may contain grammatical, syntax or spelling errors.Any formal questions or concerns about the content, text or information contained within the body of this dictation should be directly addressed to the provider for clarification. (2) Acute respiratory failure with hypoxia: (3) Pulmonary nodule: (4) Permanent atrial fibrillation: History of Present Illness Attending Physician: Red Cazares MD History of Present Illness 89-year-old female past medical history of A. fib on anticoagulation, hypothyroidism, GERD presented to the ED with complaints of shortness of breath which has been going on since last couple of days. Patient was found to have A. fib with RVR in the ED and she got Cardizem in the ED which helped her with the rate. Pulmonary consulted for bilateral pleural effusions. At the time of examination patient states that she is feeling better compared to when she came into the hospital. Denies any chest pain. As per the patient she started complaining of shortness of breath since last couple of days prior to coming to the hospital she was really short of breath. She denies any dizziness, no palpitations, no diaphoresis, no headache, no blurry vision. Denies any nausea or vomiting. She never had any procedures done like thoracentesis in the past. Patient is compliant with her medications She took her last dose of apixaban yesterday morning which is 08/04/2020 around 9 AM Social history: Approximately [id number] smoking history quit long time ago. Allergies Allergy/AdvReac Type Severity Reaction Status Date / Time montelukast [From [facility]] Allergy Severe swelling Verified 08/05/20 00:09 nickel Allergy Mild RASH Verified 08/05/20 00:09 house dust Allergy Unknown Unknown Verified 08/05/20 00:09 tree and shrub pollen Allergy Unknown Unknown Verified 08/05/20 00:09 Home Medications Medication Instructions Recorded Confirmed Type B-complex with vitamin C 1 cap PO QAM 01/13/19 08/05/20 History calcium carbonate-vitamin D3 250 1 tab PO BID tab 01/13/19 08/05/20 History mg-125 unit tablet flaxseed oil 1,000 mg capsule 1,000 mg PO QAM 01/13/19 08/05/20 History magnesium oxide 400 mg (241.3 mg 250 mg PO QAM tab 01/13/19 08/05/20 History magnesium) tablet niacin 500 mg tablet 500 mg PO QAM tab 01/13/19 08/05/20 History omega-3 fatty acids 1,000 mg 1,000 mg PO QAM 01/13/19 08/05/20 History capsule ferrous sulfate 325 mg PO QAM 06/03/19 08/05/20 History turmeric 400 mg capsule 500 mg PO QAM cap 07/25/19 08/05/20 History apixaban 2.5 mg tablet 2.5 mg PO BID #180 tab 10/31/19 08/05/20 Rx metoprolol succinate 25 mg 25 mg PO BID #180 tab 01/02/20 08/05/20 Rx tablet,extended release 24 hr pantoprazole 40 mg tablet,delayed 40 mg PO DAILY #90 tab 04/23/20 08/05/20 Rx release cholecalciferol (vitamin D3) 50 50 mcg PO DAILY #30 cap 07/17/20 08/05/20 Rx mcg (2,000 unit) capsule levothyroxine 75 mcg tablet 75 mcg PO QAM #30 tab 08/01/20 08/05/20 Rx Patient History Medical History (Updated 08/05/20 @ 07:44 by Mookie Dos Santos MD) Diastolic dysfunction DJD (degenerative joint disease) GERD (gastroesophageal reflux disease) Well controlled and stable with PPI HTN (hypertension) Hypothyroidism (acquired) Mitral valve regurgitation Mild per 2017 ECHO Osteoporosis, unspecified Permanent atrial fibrillation On Eliquis and Metoprolol- Dx'ed 2017- Follows with cardio - No recent palpitations Photosensitive contact dermatitis Pulmonary nodule Surgical History H/O colonoscopy (02/28/09) Benign strips of mucosa, without any pathological findings. History of right oophorectomy S/P appendectomy S/P cataract surgery bilateral S/P eye surgery bilateral lower ectropion repair S/P tonsillectomy S/P total abdominal hysterectomy 10/22/10 Status post total replacement of hip LEFT Family History Mother , 66 breast cancer Breast cancer Sister Breast cancer Brother Carcinoma of parathyroid gland Son Epilepsy Father , 90 No problems noted. Denies family history of Ovarian cancer Prostate cancer Myocardial infarction Colorectal cancer Social History Smoking Status: Former smoker Tobacco Type: Cigarettes Number of Years Since Quit: 40; Second Hand Exposure: No; Hx Alcohol Use: Yes Alcohol type: beer and wine Alcohol Intake Frequency: Monthly or Less Hx Substance Use: No Preferred Language: Indonesian Communication Ability: Effective Visual Impairment: No Limitations Hearing Ability: Use of Hearing Aid Director Of Sales Required: No Beliefs That Will Affect Care: None marital status: / Current Living Situation: Alone Current Living Situation Comment: [facility] current occupational status: retired Other Information That Helps Us Care for You: No Feels Safe at Home: Yes Safety Concerns: Feels Safe At This Time Childhood Exposure to Second-Hand Smoke: Yes caffeine: Yes (Coffee 1/2 cup in the AM - Tea one cup daily.) during the past year weight has: remained stable Dental Care, Regularly: Yes Physical Activity Frequency: Daily Seatbelt Use: always Sunscreen Use: Yes Assistive Devices: Oxygen - Continuous Assistive Devices Comment: partial upper and lower Review of Systems Review of Systems: All systems reviewed & are unremarkable except as noted in HPI & below Physical Exam Physical Exam: Constitutional: No acute distress HEENT: EOMI, PERRLA Respiratory system: Decreased air entry bilaterally, no wheeze, rhonchi, positive crackles bilateral lower lobes CVS: S1-S2 positive, no murmurs or gallops, Irregular Abdomen: Soft, nontender, nondistended, positive bowel sounds x4 Extremities: +2 pulses bilaterally radialis/ dorsalis pedis, no cyanosis, +1 edema bilateral lower extremity, more on the right side Neuro: Awake alert oriented x3 Psych: Normal mood and affect G/U: No Mathews Skin: no rashes, warm and dry Lymphatic: no cervical or axillary lymphadenopathy Results & Data Results & Data ([facility]) Vital Signs (Past 12 Hours) Vital Signs Temp Pulse Pulse Resp BP BP Pulse Ox 08/05/20 07:17 37.0 C 83 18 132/74 98 08/05/20 06:00 85 20 95 08/05/20 05:30 99 H 22 92 08/05/20 05:00 88 23 93 08/05/20 04:30 92 H 27 H 94 08/05/20 04:13 97 H 35 H 154/95 H 95 08/05/20 04:12 36.9 C 125 H 95 H 31 H 151/104 H 154/95 H 94 08/05/20 04:06 126 H 38 H 08/05/20 03:30 94 H 26 H 94 08/05/20 03:19 88 24 154/81 H 94 08/05/20 02:30 110 H 19 93 08/05/20 02:01 92 H 36 H 94 08/05/20 02:00 100 H 38 H 146/90 H 95 08/05/20 01:30 96 H 37 H 147/87 H 92 08/05/20 01:20 98 H 24 94 08/05/20 01:00 105 H 30 H 138/96 96 03/28/21 00:01 106 H 29 H 92 08/05/20 00:00 99 H 31 H 141/94 H 90 08/04/20 23:30 103 H 29 H 153/100 H 91 08/04/20 23:00 105 H 28 H 133/98 92 08/04/20 22:42 123 H 30 H 92 08/04/20 22:37 123 H 27 H 162/116 H 91 08/04/20 22:21 36.7 C 130 H 20 178/105 H 97 08/04/20 22:57 08/04/20 22:57 PG Care Time/CCT Total # of Minutes Spent Total Time Spent with Patient: Total time spent is greater than 50% in coordination of care (as documented) at patient's floor/unit and/or counseling patient: Coding Level of Care Code 81064 Initial Inpt Care Lvl 3 Diagnoses Pleural effusion J90 Acute respiratory failure with hypoxia J96.01 Pulmonary nodule R91.1 Permanent atrial fibrillation I48.2
[2020-08-05] MEDS: MAGNESIUM OXIDE 400 MG TAB PO SCH (08:41)
[2020-08-05] MEDS: FERROUS SULFATE 325 MG TAB PO SCH (08:41)
[2020-08-05] MEDS: NIACIN 500 MG TAB PO SCH (08:41)
[2020-08-05] MEDS: HEPARIN SODIUM/DEXTROSE 25,000 UNITS/500 ML BAG IV SCH (08:41)
[2020-08-05] MEDS: CHOLECALCIFEROL 1,000 UNITS 25 MCG TAB PO SCH (08:41)
[2020-08-05] MEDS: VITAMIN B COMPLEX TAB PO SCH (08:41)
[2020-08-05] MEDS: OMEGA-3 (PURIFIED FISH OIL) 1 GM CAP PO SCH (08:41)
[2020-08-05] MEDS: CALCIUM 600MG + VIT D 400 IU TAB PO SCH ×2 (08:41→19:32)
[2020-08-05] MEDS: PANTOprazole 40 MG TAB PO SCH (08:41)
--- NOTE | 2020-08-05 08:46 | CT Scan Report ---
CT angio chest PE protocol CT DOSE: 225.58 mGy.cm HISTORY: 89 years-old Female with PE. Acute shortness of breath with hypertension TECHNIQUE: Multiple CTA images of the chest were obtained after the intravenous administration of 120 ml Optiray 320. Coronal and sagittal MIPS were obtained from the axial data set and were submitted for review. All measurements were obtained according to NASCET criteria. A dose lowering technique w as utilized adhering to the principles of ALARA. COMPARISON: Chest radiograph 08/04/2020, chest CT 01/03/2020 FINDINGS: Study is limited by respiratory motion artifact. CTA: Marked cardiomegaly. No pericardial effusion. Mild coronary artery calcifications. The left heart str uctures and thoracic aorta are not well evaluated secondary to contrast bolus timing. No thoracic aor tic aneurysm. Reflux of contrast into the IVC. Subsegmental branches of the pulmonary artery are not well seen secondary to respiratory motion artifact. No filling defects identified to suggest thromboe mbolic disease. CT CHEST: Unremarkable thyroid. Prominent mediastinal and hilar lymph nodes measuring 8-9 mm are likely reactiv e. Small to moderate bilateral pleural effusions. There is no pneumothorax. Intralobular septal thick ening with intermixed groundglass densities. Bronchial wall thickening. Moderate emphysema. Dependent bibasilar consolidation. 1.2 cm ovoid and circumscribed isodense nodular opacity of the right lower lobe on image 97 series 4 is unchanged. No pneumoperitoneum. Numerous hepatic cysts redemonstrated. Mild generalized body wall edema. No acut e fracture. Degenerative changes of the spine and shoulders. IMPRESSION: 1. Limited exam as above. 2. No pulmonary emboli identified. 3. Cardiomegaly with pulmonary edema. 4. Small to moderate pleural effusions with dependent bibasilar opacities suggestive of compressive a telectasis. 5. Unchanged 1.2 cm ovoid hypodense nodule of the right lower lobe possibly representing an impacted bronchus or a pulmonary hamartoma. Follow-up chest CT in 6 months is recommended. 6. Emphysema. ACT 112: Negative or not required by law. The above report was generated using voice recognition software. It may contain grammatical, syntax o r spelling errors. Electronically signed by: Shaheen Garnica M.D. 08/05/2020 8:45 AM
[2020-08-05] MEDS ORDERED: NON-FORMULARY MEDICATION (Turmeric 400 mg capsule) PO SCH (09:00)
[2020-08-05] MEDS ORDERED: NON-FORMULARY MEDICATION (Flaxseed Oil 1,000 mg capsule) PO SCH (09:00)
[2020-08-05] MEDS ORDERED: APIXABAN 2.5 MG TAB PO SCH (09:00)
[2020-08-05] MEDS ORDERED: METOPROLOL SUCC 25MG EXT REL TAB PO SCH (09:00)
--- NOTE | 2020-08-05 09:52 | XRay Report ---
XR chest 1V portable HISTORY: weakness COMPARISON: 06/13/2019. FINDINGS: Redemonstration of the 1.5 cm right lower lobe nodule. The heart remains enlarged. There is progressive interstitial/vascular thickening consistent with mild pulmonary edema. No pneumothorax. Small bilateral pleural effusions. Bibasilar densities favor compressive atelectasis from the pleural effusions. Emphysema. IMPRESSION: Interval progression of the mild interstitial pulmonary edema and small bilateral pleural effusions. Stable 1.5 cm right lower lobe nodule. ACT 112: Negative or not required by law. Electronically signed by: Jude Landis M.D. 08/05/2020 9:51 AM
[2020-08-05] MEDS ORDERED: hydrOXYzine HCl 25 MG TAB PO PRN (10:36)
[2020-08-05] MEDS ORDERED: EUCERIN CR 120 GM JAR EXT PRN (10:37)
[2020-08-05] MEDS: UMECLIDINIUM BROMIDE 62.5MCG/BLISTER 7 PUFFS/INHALER INH SCH (12:35)
--- NOTE | 2020-08-05 13:03 | Cardiology Consultation ---
Date of Consultation August 05, 2020 Assessment & Plan (1) Atrial fibrillation with rapid ventricular response: -ventricular response still elevated. -could increase metoprolol succinate to 50 mg b.i.d. -could consider addition of intravenous digoxin. -Eliquis change intravenous heparin as a thoracentesis is being contemplated. -review echocardiogram. (2) Hypervolemia: -she did note dyspnea, PND, and orthopnea prior to hospitalization. -could consider use of intravenous diuretics. (3) HTN (hypertension): -adequate control on current regimen. (4) Mitral regurgitation: -was mild in degree on previous echocardiogram. -review echocardiogram. History of Present Illness Attending Physician: Dev Tan DO History of Present Illness Mrs. Madera is an 89-year-old female admitted earlier today with atrial fibrillation and a rapid ventricular response along with hypervolemia. This consultation was ordered to assist in her management. Of note, the patient is well known to me from the outpatient setting. The patient was in her usual state of health until approximately 2-3 days prior to presentation. She began to notice palpitations and a rapid heart rate. She also noted progressive exertional dyspnea, PND, and orthopnea. She presented to the emergency room for further care. On arrival here, patient was noted to be in atrial fibrillation with a rapid ventricular response. She also had evidence of fluid overload and was given a dose of intravenous Lasix. She was also started on a diltiazem drip. The patient carries a history of permanent atrial fibrillation. She has kimberly erated rate control and long-term anticoagulation without difficulty. Currently, patient is resting comfortably in bed without complaints. Past medical and surgical history 1. Hypertension 2. Left ventricular hypertrophy 3. Diastolic dysfunction 4. Mild mitral regurgitation 5. Permanent atrial fibrillation 6. Hypothyroidism 7. GERD 8. Hiatal hernia 9. Pulmonary nodule 10. DJD 11. VAHE/BSO 12. Appendectomy 13. 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 Allergies Allergy/AdvReac Type Severity Reaction Status Date / Time montelukast [From Singulair] Allergy Severe swelling Verified 08/05/20 00:09 nickel Allergy Mild RASH Verified 08/05/20 00:09 house dust Allergy Unknown Unknown Verified 08/05/20 00:09 tree and shrub pollen Allergy Unknown Unknown Verified 08/05/20 00:09 Home Medications Medication Instructions Recorded Confirmed Type B-complex with vitamin C 1 cap PO QAM 01/13/19 08/05/20 History calcium carbonate-vitamin D3 250 1 tab PO BID tab 01/13/19 08/05/20 History mg-125 unit tablet flaxseed oil 1,000 mg capsule 1,000 mg PO QAM 01/13/19 08/05/20 History magnesium oxide 400 mg (241.3 mg 250 mg PO QAM tab 01/13/19 08/05/20 History magnesium) tablet niacin 500 mg tablet 500 mg PO QAM tab 01/13/19 08/05/20 History omega-3 fatty acids 1,000 mg 1,000 mg PO QAM 01/13/19 08/05/20 History capsule ferrous sulfate 325 mg PO QAM 06/03/19 08/05/20 History turmeric 400 mg capsule 500 mg PO QAM cap 07/25/19 08/05/20 History apixaban 2.5 mg tablet 2.5 mg PO BID #180 tab 10/31/19 08/05/20 Rx metoprolol succinate 25 mg 25 mg PO BID #180 tab 01/02/20 08/05/20 Rx tablet,extended release 24 hr pantoprazole 40 mg tablet,delayed 40 mg PO DAILY #90 tab 04/23/20 08/05/20 Rx release cholecalciferol (vitamin D3) 50 50 mcg PO DAILY #30 cap 07/17/20 08/05/20 Rx mcg (2,000 unit) capsule levothyroxine 75 mcg tablet 75 mcg PO QAM #30 tab 08/01/20 08/05/20 Rx Patient History Medical History (Updated 08/05/20 @ 12:57 by Won Valenzuela MD) Diastolic dysfunction DJD (degenerative joint disease) GERD (gastroesophageal reflux disease) Well controlled and stable with PPI HTN (hypertension) Hypothyroidism (acquired) Mitral valve regurgitation Mild per 2017 ECHO Osteoporosis, unspecified Permanent atrial fibrillation On Eliquis and Metoprolol- Dx'ed 2017- Follows with cardio - No recent palpitations Photosensitive contact dermatitis Pulmonary nodule Surgical History H/O colonoscopy (02/28/09) Benign strips of mucosa, without any pathological findings. History of right oophorectomy S/P appendectomy S/P cataract surgery bilateral S/P eye surgery bilateral lower ectropion repair S/P tonsillectomy S/P total abdominal hysterectomy 10/22/10 Status post total replacement of hip LEFT Family History Mother , 66 breast cancer Breast cancer Sister Breast cancer Brother Carcinoma of parathyroid gland Son Epilepsy Father , 90 No problems noted. Denies family history of Ovarian cancer Prostate cancer Myocardial infarction Colorectal cancer Social History Smoking Status: Former smoker Tobacco Type: Cigarettes Number of Years Since Quit: 40; Second Hand Exposure: No; Hx Alcohol Use: Yes Alcohol type: beer and wine Alcohol Intake Frequency: Monthly or Less Hx Substance Use: No Preferred Language: Thai Communication Ability: Effective Visual Impairment: No Limitations Hearing Ability: Use of Hearing Aid Microarray Specialist Required: No Beliefs That Will Affect Care: None marital status: / Current Living Situation: Alone Current Living Situation Comment: [facility] current occupational status: retired Other Information That Helps Us Care for You: No Feels Safe at Home: Yes Safety Concerns: Feels Safe At This Time Childhood Exposure to Second-Hand Smoke: Yes caffeine: Yes (Coffee 1/2 cup in the AM - Tea one cup daily.) during the past year weight has: remained stable Dental Care, Regularly: Yes Physical Activity Frequency: Daily Seatbelt Use: always Sunscreen Use: Yes Assistive Devices: Oxygen - Continuous Assistive Devices Comment: partial upper and lower Physical Exam Physical Exam: In general this is a well-developed well-nourished white female in no acute distress. HEENT exam is negative. Neck is supple with full carotid upstrokes. There are no carotid bruits. Jugular venous pressure is 8 cm of water at 45. There is no thyromegaly. Cardiovascular exam reveals an irregularly irregular rhythm with distant heart sounds. No S3 or murmurs are noted. Lungs note bibasilar rales. Abdomen is soft and nontender without bruits. Extremities reveal intact radial artery and posterior tibial pulses bilaterally. There is no pretibial edema. Results & Data ([facility]) Vital Signs (Past 12 Hours) Vital Signs Temp Pulse Pulse Resp BP BP Pulse Ox 08/05/20 11:52 37.0 C 116 H 18 133/75 98 08/05/20 08:00 96 H 08/05/20 07:17 37.0 C 83 18 132/74 98 08/05/20 06:00 85 20 95 08/05/20 05:30 99 H 22 92 08/05/20 05:00 88 23 93 08/05/20 04:30 92 H 27 H 94 08/05/20 04:13 97 H 35 H 154/95 H 95 08/05/20 04:12 36.9 C 125 H 95 H 31 H 151/104 H 154/95 H 94 08/05/20 04:06 126 H 38 H 08/05/20 03:30 94 H 26 H 94 08/05/20 03:19 88 24 154/81 H 94 08/05/20 02:30 110 H 19 93 08/05/20 02:01 92 H 36 H 94 08/05/20 02:00 100 H 38 H 146/90 H 95 08/05/20 01:30 96 H 37 H 147/87 H 92 08/05/20 01:20 98 H 24 94 08/05/20 01:00 105 H 30 H 138/96 96 Laboratory Results CBC notes hemoglobin 12.6, hematocrit 37.0, white count 9.4, platelet count [id number]. Electrolytes note a sodium of 140, potassium 3.8, chloride 106, bicarb 25, BUN 18, creatinine 0.7, and glucose of 115. Two troponin I levels are less than 0.015. BNP is 5204. TSH is 2.43. Diagnostic Findings EKG on presentation noted atrial fibrillation with a rapid ventricular response. There is a left axis deviation and poor R-wave progression across the anterior precordium. field specialist notes atrial fibrillation with a ventricular response of approximately 100 beats per minute. Chest x-ray shows cardiomegaly and volume overload. CT scan of the chest noted cardiomegaly and evidence of pulmonary edema. PG Care Time/CCT Total # of Minutes Spent Total Time Spent with Patient: Total time spent is greater than 50% in coordination of care (as documented) at patient's floor/unit and/or counseling patient: Coding Level of Care Code 52436 Initial Inpt Care Lvl 3 Diagnoses Atrial fibrillation with rapid ventricular response I48.91 Hypervolemia E87.70 HTN (hypertension) I10 Hypertension type: essential hypertension Mitral regurgitation I34.0 (1) HTN (hypertension) Hypertension type: essential hypertension Qualified Code(s): I10 - Essential (primary) hypertension
--- NOTE | 2020-08-05 14:51 | XCELERA ---
[id number]
--- NOTE | 2020-08-05 15:01 | Electrocardiogram Report ---
Test Reason : Blood Pressure : / mmHG Vent. Rate : 123 BPM Atrial Rate : 113 BPM P-R Int : 000 ms QRS Dur : 076 ms QT Int : 268 ms P-R-T Axes : 000 -31 034 degrees QTc Int : 383 ms Atrial fibrillation with rapid ventricular response Left axis deviation Low voltage QRS Poor R wave progression, consider anterior IN vs. lead placement vs. LVH Abnormal ECG When compared with ECG of 13-JUN-2019 14:31, T wave amplitude has decreased in Lateral leads Confirmed by Won Valenzuela ([id number]) on 08/05/2020 3:01:44 PM Referred By: REFERRED SELF Confirmed By:Won Valenzuela
[2020-08-05 15:24] LABS: Partial Thromboplastin Ratio 1.5; Partial Thromboplastin Time 40.1 Seconds (21.0-31.0)
[2020-08-05] MEDS ORDERED: FUROSEMIDE 40 MG in SYRINGE 0 ML IV ONE ×2 (16:22→17:00)
[2020-08-05] MEDS ORDERED: METOPROLOL TARTRATE 25 MG TAB PO ONE (16:55)
--- NOTE | 2020-08-05 16:55 | Hospitalist Progress Note ---
Date of Service August 05, 2020 Assessment & Plan (1) Atrial fibrillation with rapid ventricular response: Rate control improving, but still not quite adequate. Increase metoprolol. On heparin drip instead of apixaban to allow for possible thoracentesis. (2) Permanent atrial fibrillation: See above (3) HTN (hypertension): Adjusting medications for A. fib will likely improve blood pressure control some to. (4) Pleural effusion: Bilateral pleural effusions, right greater than left. Seems to be symptomatic from this, as well as from acute on chronic diastolic CHF related to her A. fib RVR. Continue to diurese for the pulmonary edema, but given her dyspnea, I suspect she would benefit from thoracentesis. (5) Hypothyroidism (acquired): Continue levothyroxine sodium 75 mcg daily (6) Hiatal hernia: Continue pantoprazole 40 mg daily (7) DVT prophylaxis: Currently anticoagulated on heparin, normally on apixaban (8) Discharge planning issues: Are betterRemaining inpatient for better rate control, and probable thoracentesis. At this point in time the goal would be to get her home her breathing is improved. Admission and Anticipated Discharge Date Admission Date: August 05, 2020 Subjective Feeling more or less the same, still fairly easily short of breath with exertion, occasionally short of breath just sitting at rest. No other new complaints. Family present, updated patient and family to the best my ability, answered all questions. Review of Systems Review of Systems: All systems reviewed & are unremarkable except as noted in HPI & below Physical Exam Physical Exam: In general she is awake and alert pleasant no distress. HEENT normocephalic atraumatic mucous membranes moist. Cardio shows her to be in A. fib with rates anywhere from high 90s to mid 120s while we are conversing. Lungs show bibasilar rales no rhonchi no wheezes good effort. Extremities show no cyanosis. Results & Data Results & Data ([facility]) Vital Signs (Past 12 Hours) Vital Signs Temp Pulse Pulse Resp BP Pulse Ox 08/05/20 16:38 97.7 F 109 H 18 160/86 H 98 08/05/20 16:00 96 H 08/05/20 11:52 98.6 F 116 H 18 133/75 98 08/05/20 08:00 96 H 08/05/20 07:17 98.6 F 83 18 132/74 98 08/05/20 06:00 85 20 95 08/05/20 05:30 99 H 22 92 08/05/20 05:00 88 23 93 PG Care Time/CCT Total # of Minutes Spent Total Time Spent with Patient: Total time spent is greater than 50% in coordination of care (as documented) at patient's floor/unit and/or counseling patient: Coding Level of Care Code 73190 Subseq Hosp Care Lvl 3 Diagnoses Atrial fibrillation with rapid ventricular response I48.91 Permanent atrial fibrillation I48.2 HTN (hypertension) I10 Hypertension type: essential hypertension Pleural effusion J90 Hypothyroidism (acquired) E03.9 Hiatal hernia K44.9 DVT prophylaxis Z29.9 Discharge planning issues Z02.9 (1) HTN (hypertension) Hypertension type: essential hypertension Qualified Code(s): I10 - Essential (primary) hypertension
[2020-08-05] MEDS: METOPROLOL SUCC 50MG EXT REL TAB PO SCH (19:32)
[2020-08-05 21:51] LABS: Partial Thromboplastin Ratio 1.9
[2020-08-05 21:52] LABS: Partial Thromboplastin Time 49.8 Seconds (21.0-31.0)
[2020-08-06 05:24] LABS: Partial Thromboplastin Time 53.4 Seconds (21.0-31.0)
[2020-08-06] MEDS: LEVOTHYROXINE SODIUM 75 MCG TABLET PO SCH (05:52)
[2020-08-06] MEDS: HEPARIN SODIUM/DEXTROSE 25,000 UNITS/500 ML BAG IV SCH (07:57)
[2020-08-06] MEDS: METOPROLOL SUCC 50MG EXT REL TAB PO SCH ×2 (07:58→20:02)
[2020-08-06] MEDS: UMECLIDINIUM BROMIDE 62.5MCG/BLISTER 7 PUFFS/INHALER INH SCH (07:58)
[2020-08-06] MEDS: CALCIUM 600MG + VIT D 400 IU TAB PO SCH ×2 (07:58→20:03)
[2020-08-06] MEDS: NIACIN 500 MG TAB PO SCH (07:59)
[2020-08-06] MEDS: PANTOprazole 40 MG TAB PO SCH (07:59)
[2020-08-06] MEDS: CHOLECALCIFEROL 1,000 UNITS 25 MCG TAB PO SCH (07:59)
[2020-08-06] MEDS: MAGNESIUM OXIDE 400 MG TAB PO SCH (07:59)
[2020-08-06] MEDS: OMEGA-3 (PURIFIED FISH OIL) 1 GM CAP PO SCH (07:59)
[2020-08-06] MEDS: VITAMIN B COMPLEX TAB PO SCH (07:59)
[2020-08-06] MEDS: FERROUS SULFATE 325 MG TAB PO SCH (07:59)
--- NOTE | 2020-08-06 08:22 | Medical Student Progress Note ---
Date of Service August 06, 2020 Assessment & Plan (1) Atrial fibrillation with rapid ventricular response: Rate fluctuates from 90s to 110s Metoprolol was increased yesterday Keep heparin drip to allow for possible therapeutic thoracentesis (2) Permanent atrial fibrillation: Managed at home with apixaban and metoprolol Continue to hold apixaban for heparin drip (3) HTN (hypertension): Improves with A fib medication Hypertension type: essential hypertension Qualified Code(s): I10 - Essential (primary) hypertension (4) Pleural effusion: Bilateral pleural effusions, right greater than left Seems to be symptomatic from this, as well as from acute on chronic diastolic C HF related to her A fib RVR Continue to diurese Continues to have dyspnea on exertion If SOB does not improve may order CXR to see if effusion has improved and to rule out other causes (5) Discharge planning issues: Remaining inpatient for better rate control, and potential thoracentesis At this point in time the goal would be to send her home once her breathing is improved (6) Hiatal hernia: Continue pantoprazole 40 mg daily (7) Hypothyroidism (acquired): Continue levothyroxine Admission and Anticipated Discharge Date Admission Date: August 05, 2020 Supervising Attestation I personally examined the patient and verified all alexandre points of history and exam, discussed case, and agree with decision making with Christiano Whitt. Breathing feeling better, getting around in the room okay no significant dyspnea on exertion. Down to 1 L. Vitals noted, in general she is awake and alert pleasant no distress. HEENT normocephalic atraumatic mucous membranes moist. Breathing unlabored no accessory muscle use, she does have extremely faint bibasilar rales only heard with amplification. No rhonchi no wheezes good effort. A. fib/RVR with acute diastolic CHF, and bilateral pleural effusions causing hypoxic respiratory failureseems to be improving nicely. May not need thoracentesis. Continue diuresis, if she is able to be weaned off of oxygen and has no significant dyspnea, we can spare her the procedure, if not/if we reach a plateau, she is still on a heparin drip so would be easy to turn it off and do the thoracentesis if needed. Follow into tomorrow, hopefully home though if she continues to show improvement. A. fib rate control is reasonable. Otherwise as above. Subjective Leonarda is feeling better today, she feels close to her baseline except for her shortness of breath which has improved greatly since admission. She is short of breath with exertion and occasionally while talking, but she states that 90% of the time she is breathing normally. She slept well last night, waking up several times only to use the restroom after taking Lasix. She had previously noticed some swelling in her left leg that has since gone down. She is ambulating well. She was waiting to find out if she would undergo thoracentesis to improve her SOB symptoms, which is less likely seeing as she is improving with diuresis alone. Review of Systems Review of Systems: All systems reviewed & are unremarkable except as noted in HPI & below Physical Exam Constitutional: well developed and well nourished; no acute distress Respiratory: Auscultation: + diminished lung sounds (on the left side) and + rales; no rhonchi and no wheezes Cardiovascular: Rate/Rhythm: + tachycardic and + irregularly irregular (a fib) Skin: no rashes, warm and dry Results & Data ([facility]) Vital Signs (Past 12 Hours) Vital Signs Temp Pulse Resp BP BP Pulse Ox 08/06/20 08:10 36.5 C 117 H 22 142/83 H 93 08/06/20 03:34 36.5 C 84 23 126/75 97 08/05/20 23:18 36.7 C 98 H 22 138/104 H 93
--- NOTE | 2020-08-06 10:29 | Cardiology Progress Note ---
Date of Service August 06, 2020 Assessment & Plan (1) Atrial fibrillation with rapid ventricular response: -ventricular response now controlled on increased metoprolol succinate dose. -could consider addition of intravenous digoxin. -Eliquis changed to intravenous heparin as a thoracentesis is being contemplated. -echocardiogram notes borderline LV function with an ejection fraction 45- 50%. (2) Hypervolemia: -improved after a dose intravenous Lasix. (3) HTN (hypertension): -adequate control on current regimen. (4) Mitral regurgitation: -mild to moderate current echocardiogram. Admission and Anticipated Discharge Date Admission Date: August 05, 2020 Subjective The patient is resting comfortably at the bedside without complaints of chest pain, dyspnea, or palpitations. Physical Exam Physical Exam: In general this is a well-developed well-nourished white female in no acute distress. HEENT exam is negative. Neck is supple with full carotid upstrokes. There are no carotid bruits. No JVD. There is no thyromegaly. Cardiovascular exam reveals an irregularly irregular rhythm with distant heart sounds. No S3 or murmurs are noted. Lungs are clear without rales, rhonchi, wheezes. Abdomen is soft and nontender without bruits. Extremities reveal intact radial artery and posterior tibial pulses bilaterally. There is no pretibial edema. Results & Data ([facility]) Vital Signs (Past 12 Hours) Vital Signs Temp Pulse Resp BP BP Pulse Ox 08/06/20 08:10 36.5 C 117 H 22 142/83 H 93 08/06/20 03:34 36.5 C 84 23 126/75 97 08/05/20 23:18 36.7 C 98 H 22 138/104 H 93 Diagnostic Findings residential monitor notes atrial fibrillation with a controlled ventricular response. PG Care Time/CCT Total # of Minutes Spent Total Time Spent with Patient: Total time spent is greater than 50% in coordination of care (as documented) at patient's floor/unit and/or counseling patient: Coding Level of Care Code 42558 Subseq Hosp Care Lvl 3 Diagnoses Atrial fibrillation with rapid ventricular response I48.91 Hypervolemia E87.70 HTN (hypertension) I10 Hypertension type: essential hypertension Mitral regurgitation I34.0 (1) HTN (hypertension) Hypertension type: essential hypertension Qualified Code(s): I10 - Essential (primary) hypertension
--- NOTE | 2020-08-06 12:34 | Electrocardiogram Report ---
Test Reason : Blood Pressure : / mmHG Vent. Rate : 101 BPM Atrial Rate : 375 BPM P-R Int : 000 ms QRS Dur : 084 ms QT Int : 328 ms P-R-T Axes : 000 -34 016 degrees QTc Int : 425 ms Atrial fibrillation with rapid ventricular response with premature ventricular or aberrantly conducte d complexes Left axis deviation Abnormal ECG When compared with ECG of 04-AUG-2020 22:34, No significant change was found Confirmed by Won Valenzuela ([id number]) on 08/06/2020 12:34:09 PM Referred By: REFERRED SELF Confirmed By:Won Valenzuela
--- NOTE | 2020-08-06 12:53 | Pulmonology Progress Note ---
Date of Service August 06, 2020 Assessment & Plan (1) Pleural effusion: 89-year-old female with a past medical history of combined systolic and diastolic CHF with a presentation of acute on chronic CHF. She also presented with atrial fibrillation with rapid ventricular response. Acute hypoxemic respiratory failure: Likely secondary to acute on chronic CHF. This appears improved today. Echo from 07/28/2020 reviewed with an EF of 45 to 50% and global hypokinesis of the left ventricle. She is receiving diuretics per cardiology. Recommend additional IV diuretics today. Pleural effusions bilaterally: I reviewed the CTA of the chest on 08/05/2020. Sm all bilateral effusions seen. Secondary to CHF. We will hold off on thoracentesis at this time. Continue with IV diuretics as she is improving. 1.2 cm ovoid hypodense nodule in the right lower lobe noted on CT chest l. Would recommend a repeat CT chest in 6-12 months. (2) Acute respiratory failure with hypoxia: (3) Pulmonary nodule: (4) Permanent atrial fibrillation: Admission and Anticipated Discharge Date Admission Date: August 05, 2020 Results & Data Results & Data ([facility]) Vital Signs (Past 12 Hours) Vital Signs Temp Pulse Resp BP BP Pulse Ox 08/06/20 08:10 97.7 F 117 H 22 142/83 H 93 08/06/20 03:34 97.7 F 84 23 126/75 97 PG Care Time/CCT Total # of Minutes Spent Total Time Spent with Patient: Total time spent is greater than 50% in coordination of care (as documented) at patient's floor/unit and/or counseling patient: Coding Level of Care Code 72770 Subseq Hosp Care Lvl 2 Diagnoses Pleural effusion J90 Acute respiratory failure with hypoxia J96.01 Pulmonary nodule R91.1 Permanent atrial fibrillation I48.2
[2020-08-06] MEDS ORDERED: FUROSEMIDE 40 MG in SYRINGE 0 ML IV ONE (18:49)
--- NOTE | 2020-08-06 19:17 | Billing Data ---
Date of Service August 06, 2020 Coding Level of Care Code 20213 Subseq Hosp Care Lvl 3
[2020-08-07] MEDS: LEVOTHYROXINE SODIUM 75 MCG TABLET PO SCH (05:16)
--- NOTE | 2020-08-07 07:05 | Hospitalist Progress Note ---
Date of Service August 07, 2020 Assessment & Plan Admission and Anticipated Discharge Date Admission Date: August 05, 2020 Results & Data Results & Data ([facility]) Vital Signs (Past 12 Hours) Vital Signs Temp Pulse Resp BP Pulse Ox 08/07/20 03:01 36.9 C 88 18 143/86 H 96 08/06/20 23:17 36.6 C 81 20 123/82 95 08/06/20 19:54 36.4 C L 84 20 159/104 H 92
[2020-08-07 07:14] LABS: Partial Thromboplastin Ratio 1.7; Partial Thromboplastin Time 44.8 Seconds (21.0-31.0)
[2020-08-07] MEDS: CHOLECALCIFEROL 1,000 UNITS 25 MCG TAB PO SCH (07:30)
[2020-08-07] MEDS: UMECLIDINIUM BROMIDE 62.5MCG/BLISTER 7 PUFFS/INHALER INH SCH (07:30)
[2020-08-07] MEDS: NIACIN 500 MG TAB PO SCH (07:30)
[2020-08-07] MEDS: CALCIUM 600MG + VIT D 400 IU TAB PO SCH (07:30)
[2020-08-07] MEDS: PANTOprazole 40 MG TAB PO SCH (07:31)
[2020-08-07] MEDS: FERROUS SULFATE 325 MG TAB PO SCH (07:31)
[2020-08-07] MEDS: OMEGA-3 (PURIFIED FISH OIL) 1 GM CAP PO SCH (07:31)
[2020-08-07] MEDS: MAGNESIUM OXIDE 400 MG TAB PO SCH (07:31)
[2020-08-07] MEDS: VITAMIN B COMPLEX TAB PO SCH (07:31)
[2020-08-07] MEDS: METOPROLOL SUCC 50MG EXT REL TAB PO SCH (07:31)
--- NOTE | 2020-08-07 10:12 | Cardiology Progress Note ---
Date of Service August 07, 2020 Assessment & Plan (1) Atrial fibrillation with rapid ventricular response: -ventricular response now controlled on metoprolol succinate 50 mg b.i.d.. -Eliquis changed to intravenous heparin as a thoracentesis is being contemplated. -echocardiogram notes borderline LV function with an ejection fraction 45- 50%. (2) Hypervolemia: -resolved. (3) HTN (hypertension): -adequate control on current regimen. (4) Mitral regurgitation: -mild to moderate current echocardiogram. Admission and Anticipated Discharge Date Admission Date: August 05, 2020 Subjective The patient is resting comfortably in bed without complaints of chest pain, dyspnea, or palpitations. She is anxious for hospital discharge. Physical Exam Physical Exam: In general this is a well-developed well-nourished white female in no acute distress. HEENT exam is negative. Neck is supple with full carotid upstrokes. There are no carotid bruits. No jugular venous distension. There is no thyromegaly. Cardiovascular exam reveals an irregularly irregular rhythm with distant heart sounds. No S3 or murmurs are noted. Lungs are clear without rales, rhonchi, wheezes. Abdomen is soft and nontender without bruits. Extremities reveal intact radial artery and posterior tibial pulses bilaterally. There is no pretibial edema. 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 PG Care Time/CCT Total # of Minutes Spent Total Time Spent with Patient: Total time spent is greater than 50% in coordination of care (as documented) at patient's floor/unit and/or counseling patient: Coding Level of Care Code 23431 Subseq Hosp Care Lvl 3 Diagnoses Atrial fibrillation with rapid ventricular response I48.91 Hypervolemia E87.70 HTN (hypertension) I10 Hypertension type: essential hypertension Mitral regurgitation I34.0 (1) HTN (hypertension) Hypertension type: essential hypertension Qualified Code(s): I10 - Essential (primary) hypertension
[2020-08-07] MEDS: HEPARIN SODIUM/DEXTROSE 25,000 UNITS/500 ML BAG IV SCH (10:20)
--- NOTE | 2020-08-07 12:23 | Pulmonology Progress Note ---
Date of Service August 07, 2020 Assessment & Plan (1) Pleural effusion: 89-year-old female with a past medical history of combined systolic and diastolic CHF with a presentation of acute on chronic CHF. She also presented with atrial fibrillation with rapid ventricular response. Acute hypoxemic respiratory failure: Likely secondary to acute on chronic CHF. This appears improved today. Echo from 07/28/2020 reviewed with an EF of 45 to 50% and global hypokinesis of the left ventricle. She is receiving diuretics per cardiology. Pleural effusions bilaterally: I reviewed the CTA of the chest on 08/05/2020. Small bilateral effusions seen. Secondary to CHF. We will hold off on thoracentesis at this time. Continue with diuretics. 1.2 cm ovoid hypodense nodule in the right lower lobe noted on CT chest l. Would recommend a repeat CT chest in 6-12 months. (2) Acute respiratory failure with hypoxia: (3) Pulmonary nodule: (4) Permanent atrial fibrillation: Admission and Anticipated Discharge Date Admission Date: August 05, 2020 Subjective Patient symptomatically improved today. She is off oxygen at this time. No significant shortness of breath symptoms. She denies any chest pain. No cough. Review of Systems Review of Systems: All systems reviewed & are unremarkable except as noted in HPI & below Physical Exam Physical Exam: Constitutional: No acute distress HEENT: EOMI, PERRLA Respiratory system: Decreased air entry bilaterally, no wheeze, rhonchi, positive crackles bilateral lower lobes CVS: S1-S2 positive, no murmurs or gallops, Irregular Abdomen: Soft, nontender, nondistended, positive bowel sounds x4 Extremities: +2 pulses bilaterally radialis/ dorsalis pedis, no cyanosis, +1 edema bilateral lower extremity, more on the right side Neuro: Awake alert oriented x3 Psych: Normal mood and affect G/U: No Mathews Skin: no rashes, warm and dry Lymphatic: no cervical or axillary lymphadenopathy Results & Data Results & Data ([facility]) Vital Signs (Past 12 Hours) Vital Signs Temp Pulse Resp BP BP Pulse Ox Pulse Ox 08/07/20 11:44 97.7 F 77 18 146/96 H 95 08/07/20 11:01 95 08/07/20 07:06 97.7 F 87 16 138/84 97 08/07/20 03:01 98.4 F 88 18 143/86 H 96 I reviewed the vital signs, labs and imaging PG Care Time/CCT Total # of Minutes Spent Total Time Spent with Patient: Total time spent is greater than 50% in coordination of care (as documented) at patient's floor/unit and/or counseling patient: Coding Level of Care Code 91229 Subseq Hosp Care Lvl 2 Diagnoses Pleural effusion J90 Acute respiratory failure with hypoxia J96.01 Pulmonary nodule R91.1 Permanent atrial fibrillation I48.2
[2020-08-07 14:12] LABS: Partial Thromboplastin Ratio 1.8
[2020-08-07 14:17] LABS: Partial Thromboplastin Time 46.4 Seconds (21.0-31.0)
--- NOTE | 2020-08-07 15:09 | Electrocardiogram Report ---
Test Reason : Blood Pressure : / mmHG Vent. Rate : 092 BPM Atrial Rate : 131 BPM P-R Int : 000 ms QRS Dur : 084 ms QT Int : 366 ms P-R-T Axes : 000 -55 021 degrees QTc Int : 452 ms Atrial fibrillation with premature ventricular or aberrantly conducted complexes Left anterior fascicular block Poor R wave progression, consider anterior SC vs. lead placement vs. LVH Abnormal ECG When compared with ECG of 06-AUG-2020 05:57, No significant change was found Confirmed by Won Valenzuela ([id number]) on 08/07/2020 3:09:37 PM Referred By: REFERRED SELF Confirmed By:Won Valenzuela
--- NOTE | 2020-08-07 17:56 | Discharge Summary ---
Date of Service August 07, 2020 Admission HPI Per Admitting Provider The patient is an 89-year-old female with a past medical history including chronic dermatitis, status post right GAYATHRI, pulmonary nodule, hiatal hernia, osteopenia, LVH, mild regurgitation, permanent atrial fibrillation, hypertension, hypothyroidism and photosensitive contact dermatitis. Upon presentation to the emergency department, patient was found to be in atrial fibrillation with RVR with rate up to 130. She received Cardizem 10 mg IV in series x2, with improved heart rate to the low 100s. Principal Diagnosis A. fib with RVR causing acute on chronic diastolic CHF resulting in acute hypoxic respiratory failure (improved) Discharge Exam In general she is awake and alert pleasant no distress. HEENT normocephalic atraumatic mucous membranes moist. Breathing unlabored, lungs are clear no rales rhonchi or wheezes good effort. Cardiac is rate controlled. Neuro shows no focal deficits. Discharge Data Allergies Allergy/AdvReac Type Severity Reaction Status Date / Time montelukast [From Singulair] Allergy Severe swelling Verified 08/05/20 00:09 nickel Allergy Mild RASH Verified 08/05/20 00:09 house dust Allergy Unknown Unknown Verified 08/05/20 00:09 tree and shrub pollen Allergy Unknown Unknown Verified 08/05/20 00:09 Consultations 08/05/20 02:17 ED Decision to Admit Stat 08/05/20 04:04 Consult Cardiology Routine Consult Pulmonology Routine Ordered Studies 08/05/20 00:00 CT angio chest PE protocol Urgent Hospital Course (1) Atrial fibrillation with rapid ventricular response: Rate now controlled on increased dose of metoprololwill send home on the same. Anticoagulated with apixaban. Follow heart rates as an outpatient. (2) (HFpEF) heart failure with preserved ejection fraction: Now stable for home. Pulmonary edema seems to been the main culprit for the hypoxia. Earlier in her hospital course thoracentesis for the effusions was considered, but given that she improved with diuresis alone, is breathing room air, and has no significant dyspnea on exertion, we all agreed (including the patient) to hold off on any procedures at this time. Should she have any persistent or recurrent dyspnea, then reconsideration for thoracentesis as an ou tpatient can be done, but given the procedure does not seem to be truly necessary at this time, holding off seemed most prudent. We also considered whether or not to send her home with a diuretic, but given that she has not been a brittle CHF patient, and this episode seems to have been related to RVR and poor diastolic filling time, we felt it more prudent to work on better rate control and have close follow-up, then risk overdiuresis by sending her home on a diuretic that she may not need. (3) Permanent atrial fibrillation: Rate now better controlled with increased dose of metoprolol, outpatient follow-up (4) HTN (hypertension): Blood pressure showing pretty reasonable control. Outpatient follow-up (5) Pleural effusion: See above, outpatient follow-up, initial consideration for thoracentesis was not undertaken, given her degree of clinical improvement making it seem unnecessary at this time (6) Discharge planning issues: Stable for home (7) Hiatal hernia: Continue pantoprazole 40 mg daily (8) Hypothyroidism (acquired): Continue levothyroxine sodium 75 mcg daily Total Time Total Time Spent Total Time Spent (In Minutes): <30 Discharge Plan Discharge Items Patient Disposition: Home - Self-Care Reason For Visit: ATRIAL FIB WITH RVR, B/L PLEURAL EFFUSIONS Discharge Diagnosis: congestive heart failure exacerbation Condition on Discharge: Fair Activity: As commented below Non-emergency contact: Primary Care Provider Call non-emergency contact if: you have any medication questions, your symptoms worsen and you have a fever Follow-up/Referrals: Elia Talley MD [Primary Care Provider] - 08/15/20 11:15 am Diet: Low Sodium (2gm) Addtl Attending Provider Instructions: You were admitted to the hospital for increased shortness of breath due to a heart failure exacerbation and pleural effusion (fluid in lungs). We believe this was caused by a gradually increasing heart rate due to underlying atrial fibrillation. At the ED, your Eliquis was held and you were started on an IV heparin drip (blood thinner) as replacement to have the option to perform a thoracentesis if necessary. Your metoprolol was increased from 25 mg to 50 mg twice daily to help control your heart rate. You were given diuretics during your stay. The diuretic successfully reduced your pulmonary edema (lung fluid) to the point that your shortness of breath subsided and a thoracentesis was unnecessary. The only change to your home medications is the increase to your Metoprolol: * metoprolol succinate 50 mg PO TWICE DAILY This was sent to your [facility] pharmacy. You will resume your normal dose of Eliquis twice daily. Continue to take your at home medications as you were before. You will be discharged on 08/07/20 in a an improved, stable condition. You should follow-up with your milk bottler Dr. Valenzuela in 1-2 weeks. Following this hospital stay, continue to eat a low sodium diet and monitor your heart rate in order to recognize if it seems to be increased. There is the small chance for fluid to build up in you lungs again, if symptoms of shortness of breath seem to return please contact your PCP or milk bottler. It was a pleasure to be a part of your care. Pending Studies at Discharge: No Stand-Alone Forms: [facility], Smoking Cessation Medications and DC Order Prescriptions: New metoprolol succinate 50 mg tablet extended release 24 hr 50 mg PO BID 30 Days Qty: 60 RF: 0 Continued Eliquis 2.5 mg tablet 2.5 mg PO BID Qty: 180 RF: 3 pantoprazole 40 mg tablet,delayed release (DR/EC) 40 mg PO DAILY Qty: 90 RF: 3 cholecalciferol (vitamin D3) 50 mcg (2,000 unit) capsule 50 mcg PO DAILY Qty: 30 RF: 0 levothyroxine 75 mcg tablet 75 mcg PO QAM Qty: 30 RF: 11 calcium carbonate-vitamin D3 250-125 mg-unit tablet 1 tab PO BID RF: 0 omega-3 fatty acids [Fish Oil Concentrate] 1,000 mg capsule 1,000 mg PO QAM RF: 0 flaxseed oil 1,000 mg capsule 1,000 mg PO QAM RF: 0 magnesium oxide 400 mg (241.3 mg magnesium) tablet 250 mg PO QAM RF: 0 niacin 500 mg tablet 500 mg PO QAM RF: 0 B-complex with vitamin C capsule 1 cap PO QAM RF: 0 ferrous sulfate 325 mg (65 mg iron) Tablet 325 mg PO QAM RF: 0 turmeric 400 mg capsule 500 mg PO QAM RF: 0 Changed metoprolol succinate [Toprol XL] 25 mg tablet extended release 24 hr 50 mg PO BID Qty: 180 RF: 3 Discharge Orders: Discharge Order (Routine); Ordered 08/07/20 Ordered By: Daniel Rose Admission Data Admit Date/Time: 08/05/20 02:59 Attending Provider: Dev Tan Admit Provider: Red Cazares Primary Care Provider: Elia Talley Other Providers: Red Cazares ; Won Valenzuela ; Mookie Dos Santos Other Interventions: Discharge Summary Assessment (RN) Last Done: 08/07/20 15:22 Coding Level of Care Code D/C Day Management <30 mins Diagnoses Atrial fibrillation with rapid ventricular response I48.91 (HFpEF) heart failure with preserved ejection fraction I50.30 Permanent atrial fibrillation I48.2 HTN (hypertension) I10 Hypertension type: essential hypertension Pleural effusion J90 Discharge planning issues Z02.9 Hiatal hernia K44.9 Hypothyroidism (acquired) E03.9
== END 2020-08-07 16:31 | disposition home or self-care (01) ==
LOC: ED 22:20 → 1E 08-05 02:59 → SUATTDRO 08-05 02:59 → INTOOBSV 08-05 02:59 → 1E 08-05 03:52 → 2S 08-06 18:55